=== PATIENT | female | born 1945 | race Caucasian/White ===

== ENCOUNTER 2018-03-29 11:50 | Emergency (ER) | payer OTHER ==
[2018-03-29 12:54] LABS: Absolute Monocytes 0.6 K/uL (0.1-1.3); Absolute Neutrophil 4.5 K/uL (1.8-8.0); Basophils % 0.4 % (0-1.3); Eosinophils % 0.7 % (0-4.4); Hematocrit 38.1 % (36.0-45.0); Lymphocytes % 15.7 % (15.3-44.8); MCH 30.5 pg (27.0-35.0); MCV 88.3 fL (80-100); MPV 10.5 fL (7.6-11.3); Monocytes % 9.7 % (3.3-12.3); RBC Red Blood Cell Count 4.32 M/uL (3.86-4.86)
[2018-03-29 12:55] LABS: Protime INR 0.97
[2018-03-29] MEDS ORDERED: ASPIRIN 81 MG CHEWABLE TABLET ONE (12:57)
--- NOTE | 2018-03-29 13:09 | RAD REPORT ---
EXAM DESCRIPTION: RAD - Chest Single View - 03/29/2018 1:03 pm CLINICAL HISTORY: CHEST PAIN Chest pain. COMPARISON: Chest Pa And Lat (2 Views) dated 03/17/2017; CHEST PA AND LAT 2 VIEW dated 06/28/2012 FINDINGS: Portable technique limits examination quality. The lungs are grossly clear. The heart is normal in size. No displaced fractures. IMPRESSION: No acute intrathoracic process suspected.
[2018-03-29 13:42] LABS: Urine Blood NEGATIVE (NEG); Urine Glucose NEGATIVE (NEG); Urine Protein NEGATIVE (NEG); Urine Specific Gravity 1.005 (1.005-1.030); Urine pH 5.5 (5.0-7.0)
[2018-03-29 13:57] LABS: ALT/SGPT 30 U/L (12-78); AST/SGOT 23 U/L (15-37); Albumin 3.6 g/dL (3.4-5.0); Alkaline Phosphatase 119 U/L (45-117); BUN Blood Urea Nitrogen 18 mg/dL (7-18); Bicarbonate 28 mmol/L (21-32); Bilirubin Direct 0.1 mg/dL (0-0.2); Bilirubin Total 0.5 mg/dL (0.2-1.0); CKMB Creatine Kinase MB < 1.0 ng/mL (0.3-3.6); Creatine Phosphokinase 56 U/L (26-192); Glucose Level 71 mg/dL (74-106); Magnesium 2.1 mg/dL (1.8-2.4); NT PRO-BNP 178 pg/mL (<125); Potassium 3.5 mmol/L (3.5-5.1); Protein, Total 7.2 g/dL (6.4-8.2); Sodium Level 143 mmol/L (136-145)
--- NOTE | 2018-03-29 15:30 | ER ---
Nurse's Notes [facility] Name: Dang Kemp Age: 72 yrs Sex: Female : 1945 Arrival Date: 03/29/2018 Time: 11:53 Bed 23 Private MD: Anuel Prasad Diagnosis: Unstable angina Presentation: 03/29 11:57 Presenting complaint: Patient states: midsternal and left sided chest pressure that sv started 3 days ago. c/o SOB and dizziness. Transition of care: patient was not received from another setting of care. Onset of symptoms was March 26, 2018. Care prior to arrival: None. 11:57 Method Of Arrival: Wheelchair sv 11:57 Acuity: CATARINO 3 sv 12:45 Risk Assessment: Do you want to hurt yourself or someone else? Patient reports no la1 desire to harm self or others. Initial Sepsis Screen: Does the patient meet any 2 criteria? No. Patient's initial sepsis screen is negative. Does the patient have a suspected source of infection? No. Patient's initial sepsis screen is negative. Historical: - Allergies: 12:02 No Known Allergies; sv - PMHx: 12:02 heart disease; Thyroid problem; sv - PSHx: 12:02 Hysterectomy; Cholecystectomy; colon; sinus; breast reduction; sv - Immunization history:: Adult Immunizations up to date. - Social history:: Smoking status: Patient/guardian denies using tobacco. - Ebola Screening: : No symptoms or risks identified at this time. Screenin:45 Abuse screen: Denies threats or abuse. Denies injuries from another. Nutritional la1 screening: No deficits noted. Tuberculosis screening: No symptoms or risk factors identified. Fall Risk None identified. Assessment: 12:44 General: Appears comfortable, Behavior is calm, cooperative. Pain: Complains of pain in la1 anterior aspect of left upper chest Pain radiates to chest Pain currently is 3 out of 10 on a pain scale. Quality of pain is described as shooting, Pain began 2-3 days ago. Neuro: Level of Consciousness is awake, alert, obeys commands, Oriented to person, place, time, situation. Cardiovascular: Capillary refill < 3 seconds Patient's skin is warm and dry. 13:12 Reassessment: Patient appears in no apparent distress at this time. No changes from la1 previously documented assessment. Patient and/or family updated on plan of care and expected duration. Pain level reassessed. 15:19 Reassessment: Patient appears in no apparent distress at this time. No changes from la1 previously documented assessment. Patient and/or family updated on plan of care and expected duration. Pain level reassessed. Patient states symptoms have improved. Vital Signs: 11:57 BP 142 / 121; Pulse 79; Resp 20; Pulse Ox 100% ; Weight 71.67 kg; Height 5 ft. 4 in. sv (162.56 cm); Pain 2/10; 12:22 BP 156 / 118; Pulse 73; Resp 19; Pulse Ox 100% on R/A; la1 12:44 BP 132 / 74; Pulse 76; Resp 19; Pulse Ox 100% on R/A; la1 15:20 BP 119 / 91; Pulse 74; Resp 19; Pulse Ox 100% on R/A; la1 11:57 Body Mass Index 27.12 (71.67 kg, 162.56 cm) ED Course: 11:53 Patient arrived in ED. mr 11:53 Anuel Prasad MD is Private Physician. mr 11:57 Arm band placed on right wrist. Patient placed in an exam room, on a stretcher, on pulse oximetry. 12:00 Warm blanket given. Pillow given. jp3 12:02 Triage completed. sv 12:03 Eduardo Lentz NP is PHCP. pm1 12:03 Silvano Villar MD is Attending Physician. pm1 12:04 Dvaid Marques RN is Primary Nurse. la1 12:09 EKG done, by roving technician. reviewed by Eduardo Lentz NP. at1 12:20 Inserted saline lock: 22 gauge in right antecubital area, using aseptic technique. jp3 Blood collected. 12:25 Initial lab(s) drawn, by id, sent to lab. Urine collected: clean catch specimen, clear, jp3 major colored. 12:45 Call light in reach. teletypesetter monitor on. Pulse ox on. NIBP on. la1 12:45 Patient maintains SpO2 saturation greater than 95% on room air. la1 12:59 X-ray completed. Portable x-ray completed in exam room. Patient tolerated procedure jb2 well. 13:03 XRAY Chest (1 view) In Process Unspecified. EDMS 15:33 No provider procedures requiring assistance completed. IV discontinued, intact, la1 bleeding controlled, No redness/swelling at site. Pressure dressing applied. Administered Medications: 12:56 Drug: Aspirin Chewable Tablet 324 mg Route: PO; la1 13:38 Follow up: Response: No adverse reaction la1 Outcome: 15:33 AMA AMA form signed la1 15:33 Condition: unchanged 15:33 Instructed on risks associated with leaving AMA 15:41 Patient left the ED. ss Signatures: Dispatcher [employer] EDHanna Chavira RN RN sv Rivera, Maria mr DrewfantadoniLauri jb2 Marva Fisher RN RN ss Lelia castaneda, line repairer tower EKG Tat1 David Marques RN RN la1 Eduardo Lentz, DINESH WORK AND FAMILY LIFE CONSULTANT pm1 Xavier Goldberg jp3
--- NOTE | 2018-03-29 15:31 | EDPHYS ---
Physician Documentation [facility] Name: Dang Kemp Age: 72 yrs Sex: Female : 1945 Arrival Date: 03/29/2018 Time: 11:53 Bed 23 Private MD: Anuel Prasad ED Physician Silvano Villar HPI: 03/29 12:47 This 72 yrs old Female presents to ER via Wheelchair with complaints of Chest pm1 Pain. 12:47 The patient or guardian reports chest pain that is located primarily in the substernal pm1 area. Onset: angina for the past 4-5 years, became worse for the past 3 days. Character of the pain is different. Pain is typically in the xiphoid, epigastric area but now it is radiating to her left chest and shoulder. She experiences chest and shortness of breath with exertion. The pain radiates to the left shoulder. Associated signs and symptoms: Pertinent positives: shortness of breath, Pertinent negatives: abdominal pain, cough, nausea, vomiting. The chest pain is described as a pressure. Duration: The patient or guardian reports multiple episodes. Modifying factors: The symptoms are alleviated by NTG, nitro patch and rest the symptoms are aggravated by exertion. Severity of pain: in the emergency department the pain has improved is a 2 / 10. The patient has experienced similar episodes in the past, multiple times. The patient has not recently seen a physician, Last seen by computer game designer in July 2017. Historical: - Allergies: 12:02 No Known Allergies; sv - PMHx: 12:02 heart disease; Thyroid problem; sv - PSHx: 12:02 Hysterectomy; Cholecystectomy; colon; sinus; breast reduction; sv - Immunization history:: Adult Immunizations up to date. - Social history:: Smoking status: Patient/guardian denies using tobacco. - Ebola Screening: : No symptoms or risks identified at this time. ROS: 13:00 Constitutional: Negative for fever, chills, and weight loss, Eyes: Negative for injury, pm1 pain, redness, and discharge, ENT: Negative for injury, pain, and discharge, Neck: Negative for injury, pain, and swelling, Abdomen/GI: Negative for abdominal pain, nausea, vomiting, diarrhea, and constipation, Back: Negative for injury and pain, : Negative for injury, bleeding, discharge, and swelling, MS/Extremity: Negative for injury and deformity, Skin: Negative for injury, rash, and discoloration, Neuro: Negative for headache, weakness, numbness, tingling, and seizure. 13:00 Cardiovascular: Positive for chest pain, Negative for edema, palpitations. 13:00 Respiratory: Positive for shortness of breath, on exertion. Negative for cough. Exam: 13:00 Constitutional: This is a well developed, well nourished patient who is awake, alert, pm1 and in no acute distress. Head/Face: Normocephalic, atraumatic. Eyes: Pupils equal round and reactive to light, extra-ocular motions intact. Lids and lashes normal. Conjunctiva and sclera are non-icteric and not injected. Cornea within normal limits. Periorbital areas with no swelling, redness, or edema. ENT: Nares patent. No nasal discharge, no septal abnormalities noted. Tympanic membranes are normal and external auditory canals are clear. Oropharynx with no redness, swelling, or masses, exudates, or evidence of obstruction, uvula midline. Mucous membranes moist. Neck: Trachea midline, no thyromegaly or masses palpated, and no cervical lymphadenopathy. Supple, full range of motion without nuchal rigidity, or vertebral point tenderness. No Meningismus. 13:00 Cardiovascular: Regular rate and rhythm with a normal S1 and S2. No gallops, murmurs, or rubs. Normal PMI, no JVD. No pulse deficits. Respiratory: Lungs have equal breath sounds bilaterally, clear to auscultation and percussion. No rales, rhonchi or wheezes noted. No increased work of breathing, no retractions or nasal flaring. 13:00 Abdomen/GI: Soft, non-tender, with normal bowel sounds. No distension or tympany. No guarding or rebound. No evidence of tenderness throughout. Back: No spinal tenderness. No costovertebral tenderness. Full range of motion. Skin: Warm, dry with normal turgor. Normal color with no rashes, no lesions, and no evidence of cellulitis. MS/ Extremity: Pulses equal, no cyanosis. Neurovascular intact. Full, normal range of motion. 13:00 Chest/axilla: Inspection: normal, Palpation: tenderness, that is mild, of the anterior aspect of left upper chest, that does not reproduce the patient's complaints. 13:00 NSR 13:00 Neuro: Orientation: is normal, Motor: is normal, moves all fours. Vital Signs: 11:57 BP 142 / 121; Pulse 79; Resp 20; Pulse Ox 100% ; Weight 71.67 kg; Height 5 ft. 4 in. sv (162.56 cm); Pain 2/10; 12:22 BP 156 / 118; Pulse 73; Resp 19; Pulse Ox 100% on R/A; la1 12:44 BP 132 / 74; Pulse 76; Resp 19; Pulse Ox 100% on R/A; la1 15:20 BP 119 / 91; Pulse 74; Resp 19; Pulse Ox 100% on R/A; la1 11:57 Body Mass Index 27.12 (71.67 kg, 162.56 cm) sv MDM: 12:04 Patient medically screened. pm1 13:00 Data reviewed: vital signs. pm1 14:10 Counseling: I had a detailed discussion with the patient and/or guardian regarding: the pm1 historical points, exam findings, and any diagnostic results supporting the discharge/admit diagnosis, lab results, radiology results, the need for further work-up and treatment in the hospital. 14:10 Refusal of service: The patient/guardian displays adequate decision making capability pm1 and despite a detailed discussion of alternatives, benefits, risks, and consequences refuses: Admission to the hospital for further work-up and treatment, Patient does not want to go to [facility] for transfer due to ambulance ride comfort. Patient does not want to be admitted here due to desire to be seen by her computer game designer Dr. Márquez. Discussed with patient at length over 15 minutes the need for admission and the risks of going AMA. Patient [facility] to [facility] in her own personal vehicle to be admitted. 14:43 Physician consultation: Hawa Márquez was called at 14:44, message left with office pm1 executive secretary who is contacting the MD. 15:16 Physician consultation: Hawa Márquez was contacted at 15:16, regarding patient's pm1 condition, Patient's unwillingness to transfer by ambulance and wants to go to the hospital by personal vehicle. Discussed at length with patient the risks of going by personal vehicle. Patient and family still want to go by personal vehicle. Dr. Márquez made aware of patient's decision that I will have to AMA the patient and they are to report to ER to get admitted. 03/29 12:05 Order name: Basic Metabolic Panel; Complete Time: 14:06 pm1 03/29 12:05 Order name: CBC with Diff; Complete Time: 13:25 pm1 03/29 12:05 Order name: Ckmb; Complete Time: 14:06 pm1 03/29 12:05 Order name: CPK; Complete Time: 14:06 pm1 03/29 12:05 Order name: LFT's; Complete Time: 14:06 pm1 03/29 12:05 Order name: Magnesium; Complete Time: 14:06 pm1 03/29 12:03 Order name: EKG; Complete Time: 12:04 sv 03/29 12:05 Order name: NT PRO-BNP; Complete Time: 14:06 pm1 03/29 12:05 Order name: PT-INR; Complete Time: 13:25 pm1 03/29 12:05 Order name: Ptt, Activated; Complete Time: 13:25 pm1 03/29 12:05 Order name: Troponin (emerg Dept Use Only); Complete Time: 13:25 pm1 03/29 12:05 Order name: XRAY Chest (1 view); Complete Time: 13:25 pm1 03/29 13:38 Order name: Urine Dipstick--Ancillary (enter results); Complete Time: 14:06 eb 03/29 12:03 Order name: EKG - Nurse/Tech; Complete Time: 12:04 sv 03/29 12:05 Order name: Cardiac monitoring; Complete Time: 12:46 pm1 03/29 12:05 Order name: IV Saline Lock; Complete Time: 12:46 pm1 03/29 12:05 Order name: Labs collected and sent; Complete Time: 12:46 pm1 03/29 12:05 Order name: O2 Per Protocol; Complete Time: 12:46 pm1 03/29 12:05 Order name: O2 Sat Monitoring; Complete Time: 12:46 pm1 03/29 12:05 Order name: Urine Dipstick-Ancillary (obtain specimen); Complete Time: 13:41 pm1 Administered Medications: 12:56 Drug: Aspirin Chewable Tablet 324 mg Route: PO; la1 13:38 Follow up: Response: No adverse reaction la1 Disposition: 18:29 Co-signature as Attending Physician, Silvano Villar MD I agree with the assessment and kdr plan of care. Disposition: 03/29/18 15:30 Patient has left against medical advice. Impression: Unstable angina. - Patients states they are going to Home. - Condition is Undetermined. - Discharge Instructions: Acute Coronary Syndrome. Follow up: Emergency Department; When: Upon discharge from the Emergency Department; Reason: Worsening of condition. Follow up: Private Physician; When: Upon discharge from the Emergency Department; Reason: Recheck today's complaints, Continuance of care, Re-evaluation by your physician. - Problem is new. - Symptoms have improved. Signatures: Dispatcher [employer] Hanna Dubon, RN RN Silvano Hathaway MD MD [facility] Marva Fisher RN RN ss Attema, Lee, RN RN la1 Eduardo Lentz, DINESH CAR TRACER pm1 Corrections: (The following items were deleted from the chart) 15:41 15:30 03/29/2018 15:30 Patients has left against medical advice. Impression: Unstable ss angina. Patient states they are going to Home. Condition is Undetermined. Follow up: Emergency Department; When: Upon discharge from the Emergency Department; Reason: Worsening of condition. Follow up: Private Physician; When: Upon discharge from the Emergency Department; Reason: Recheck today's complaints, Continuance of care, Re-evaluation by your physician. Problem is new. Symptoms have improved. pm1
--- NOTE | 2018-03-30 06:50 | EKG ---
Test Date: 2018-03-29 Test Time: 12:05:12 Desk Monitor: SEBASTIAN MEASUREMENT RESULTS: Intervals: Rate: 74 MS: 158 QRSD: 98 QT: 400 QTc: 444 [place]: P: 58 MS: 158 QRS: 3 T: 47 INTERPRETIVE STATEMENTS: Normal sinus rhythm Normal ECG Compared to ECG 09/10/2004 11:44:00 No significant changes Electronically Signed On 03-30-18 06:49:22 CDT by Geovani Pruett
== END 2018-03-29 15:41 | disposition left against medical advice (07) ==
LOC: ER 11:50
DX: I20.0 Unstable angina (principal); I51.9 Heart disease, unspecified
CPT/HCPCS: 36415; 71045; 80048; 80076; 81003; 82550; 82553; 83735; 83880; 84484; 85025; 85610; 85730; 93005; 99285

== ENCOUNTER 2018-07-14 12:05 | Observation (INO) | payer OTHER ==
--- OUTSIDE RECORDS SUMMARY | 2018-07-14 12:07 | XMS REPORT | Clinical Summary ---
:1945 Author Organization [facility] Address [address] [place] [address] Care Team Providers Name Role Phone System, Provider Not In Primary Care Provider Unavailable Allergies No Known Allergies Medications Medication Sig Dispensed Refills Start Date End Date Status esomeprazole Take 20 mg by 0 Active (NEXIUM) 20 MG mouth daily. capsule amLODIPine Take 10 mg by 0 Active (NORVASC) 10 MG mouth daily. tablet estradiol (ESTRACE) Take 0.5 mg by 0 Active 0.5 MG tablet mouth daily. zolpidem (AMBIEN) Take 10 mg by 0 Active 10 mg tablet mouth every night as needed for Insomnia. atorvastatin Take 40 mg by 0 Active (LIPITOR) 20 MG mouth daily . tablet ranolazine (RANEXA) Take 500 mg by 0 Active 500 MG 12 hr tablet mouth 2 (two) times daily. cetirizine (ZYRTEC) Take 10 mg by 0 Active 10 MG chewable mouth daily. tablet estradiol (ESTRING) Place 2 mg 0 Active 2 mg (7.5 mcg /24 vaginally every hour) vaginal ring 3 (three) months follow package directions . aspirin 81 MG Take 81 mg by 0 Active chewable tablet mouth daily. citalopram (CELEXA) Take 60 mg by 0 Active 40 MG tablet mouth daily. levothyroxine Take 100 mcg by 0 Active (SYNTHROID, mouth Every LEVOTHROID) 100 MCG morning on an tablet empty stomach. liothyronine Take 5 mcg by 0 Active (CYTOMEL) 5 MCG mouth daily. tablet carvedilol (COREG) Take 1 tablet 60 tablet 11 03/31/2018 Active 6.25 MG tablet (6.25 mg total) 9 by mouth 2 (two) times daily with breakfast and dinner. levothyroxine Take 150 mcg by 0 Discontinued (SYNTHROID, mouth daily. 8 LEVOTHROID) 150 MCG tablet citalopram (CELEXA) Take 10 mg by 0 Discontinued 10 MG tablet mouth daily. 8 amLODIPine Take 5 mg by 0 Discontinued (NORVASC) 5 MG mouth daily. 8 tablet ranitidine (ZANTAC) Take 150 mg by 0 Discontinued 150 MG capsule mouth 2 (two) 8 times daily. carvedilol (COREG) Take 1 tablet 60 tablet 11 03/31/2018 Discontinued 6.25 MG tablet (6.25 mg total) 8 by mouth 2 (two) times daily with breakfast and dinner. Active Problems Problem Noted Date CAD (coronary artery disease) 03/31/2018 Chest pain 03/20/2015 Abnormal cardiovascular function study 03/20/2015 Encounters Date Type Specialty Care Team Description 03/31/2018 Surgery Geovani Agrawal CATH & PCI MD Dinoicio 03/29/2018 - Emergency Cardiology Jose Miramontes Chest pain, unspecified type (Primary Dx); 03/31/2018 MD Beni Abnormal cardiovascular function study; Phoenix Guy Essential hypertension; MD Chanell Elevated blood pressure reading; Aamir Terry Coronary artery disease involving [place] heart with angina pectoris, unspecified vessel or lesion type (HCC) (Tao) MD Gideon 03/29/2018 Orders Only General Internal Medicine after 07/13/2017 Social History Tobacco Use Types Packs/Day Years Used Date Never Smoker Smokeless Tobacco: Never Used Alcohol Use Drinks/Week oz/Week Comments Yes "not much" Sex Assigned at Date Recorded Not on file Job Start Date Occupation Industry Not on file Not on file Not on file Travel History Travel Start Travel End No recent travel history available. Last Filed Vital Signs Vital Sign Reading Time Taken Blood Pressure 134/63 03/31/2018 5:00 PM CDT Pulse 77 03/31/2018 5:00 PM CDT Temperature 37.1 C (98.7 F) 03/31/2018 4:30 PM CDT Respiratory Rate 18 03/31/2018 5:00 PM CDT Oxygen Saturation 99% 03/31/2018 5:00 PM CDT Inhaled Oxygen Concentration - - Weight 70 kg (154 lb 6.4 oz) 03/31/2018 7:39 AM CDT Height 162.6 cm (5' 4") 03/29/2018 10:43 PM CDT Body Mass Index 26.5 03/31/2018 7:39 AM CDT Plan of Treatment Not on file Procedures Procedure Name Priority Date/Time Associated Diagnosis Comments VASCULAR DIAGRAM -SCAN 06/22/2018 6:20 AM CDT RHYTHM STRIP - SCAN 04/01/2018 10:10 AM CDT VASCULAR DIAGRAM -SCAN 04/01/2018 10:10 AM CDT CARDIAC CATH REPORT - 04/01/2018 10:10 AM SCAN CDT L CATH & PCI 03/31/2018 3:27 PM Chest pain, unspecified CDT type Case Notes 1418 TSH/FREE T4 IF INDICATED Routine 03/31/2018 3:01 PM CDT PROTHROMBIN TIME/INR Routine 03/31/2018 4:47 AM CDT BASIC METABOLIC PANEL (7) Routine 03/31/2018 4:47 AM CDT CBC (HEMOGRAM ONLY) Routine 03/31/2018 4:47 AM CDT LIPID PANEL Routine 03/31/2018 4:47 AM CDT APTT Routine 03/30/2018 9:45 AM CDT TROPONIN I Routine 03/30/2018 9:45 AM CDT BASIC METABOLIC PANEL (7) Routine 03/30/2018 3:55 AM CDT TROPONIN I Routine 03/30/2018 3:55 AM CDT APTT Routine 03/30/2018 3:17 AM CDT CBC (HEMOGRAM ONLY) Routine 03/30/2018 3:17 AM CDT ED ECG INTERPRETATION Routine 03/30/2018 12:57 AM CDT B-TYPE NATRIURETIC FACTOR Routine 03/29/2018 9:52 PM CDT Results for this (BNP) procedure are in the results section. URINALYSIS W/ MICROSCOPIC STAT 03/29/2018 7:26 PM CDT XR CHEST PA OR AP 1 VIEW IN STAT 03/29/2018 7:20 PM CDT Results for this DEPT. procedure are in the results section. CBC W/PLT COUNT & AUTO STAT 03/29/2018 7:06 PM CDT Results for this DIFFERENTIAL procedure are in the results section. MAGNESIUM STAT 03/29/2018 7:06 PM CDT CREATINE KINASE (CK), TOTAL STAT 03/29/2018 7:06 PM CDT Results for this AND MB procedure are in the results section. TROPONIN I STAT 03/29/2018 7:06 PM CDT HEPATIC FUNCTION PANEL STAT 03/29/2018 7:06 PM CDT LIPASE STAT 03/29/2018 7:06 PM CDT CBC W/PLT COUNT & AUTO STAT 03/29/2018 7:06 PM CDT Results for this DIFFERENTIAL procedure are in the results section. BASIC METABOLIC PANEL (7) STAT 03/29/2018 7:06 PM CDT ECG 12-LEAD Routine 03/29/2018 5:53 PM CDT ECG 12-LEAD Routine 03/29/2018 5:53 PM CDT Procedure Note - Interface, External Ris In - 03/29/2018 6:21 PM CDT Ventricular Rate 76 BPM Atrial Rate 76 BPM P-R Interval 162 ms QRS Duration 92 ms Q-T Interval 394 ms QTC Calculation(Bazett) 443 ms P Regina 49 degrees R Regina 2 degrees T Regina 62 degrees Normal sinus rhythm Normal ECG No previous ECGs available after 07/13/2017 Results VASCULAR DIAGRAM -SCAN (06/22/2018 6:20 AM CDT)Only the most recent of2 resultswithin the time period is included. Narrative Performed At RHYTHM STRIP - SCAN (04/01/2018 10:10 AM CDT) Narrative Performed At CARDIAC CATH REPORT - SCAN (04/01/2018 10:10 AM CDT) Narrative Performed At TSH/Free T4 If Indicated (03/31/2018 3:01 PM CDT) TSH 0.41 0.35 - 4.94 uIU/mL [facility] Specimen Blood - Line, Venous Performing Organization Address City/State/Zipcode Phone Number [address] [address] CENTER Prothrombin time/INR (03/31/2018 4:47 AM CDT) Protime 13.4 11.7 - 14.7 seconds [facility] INR 1.0 <=5.9 [facility] Specimen Blood - Arm, Right Narrative Performed At [facility] RECOMMENDED COUMADIN/WARFARIN INR THERAPY RANGES STANDARD DOSE: 2.0 - 3.0 Includes: PROPHYLAXIS for venous thrombosis, systemic embolization; TREATMENT for venous thrombosis and/or pulmonary embolus. HIGH RISK: Target INR is 2.5-3.5 for patients with mechanical heart valves. Performing Organization Address City/State/[facility] Phone Number [address] [address] [place] CBC (hemogram only) (03/31/2018 4:47 AM CDT)Only the most recent of2 resultswithin the time period is included. WBC 6.2 3.5 - 10.5 K/L [facility] RBC 4.16 3.93 - 5.22 M/L [facility] Hemoglobin 12.1 11.2 - 15.7 GM/DL [facility] Hematocrit 38.3 34.1 - 44.9 % [facility] MCV 92.1 79.4 - 94.8 fL [facility] MCH 29.1 25.6 - 32.2 pg [facility] MCHC 31.6 (L) 32.2 - 35.5 GM/DL [facility] RDW 12.2 11.7 - 14.4 % [facility] Platelets 188 150 - 450 K/CU MM [facility] MPV 11.8 9.4 - 12.3 fL [facility] nRBC 0 0 - 0 /100 WBC [facility] Specimen Blood - Arm, Right Performing Organization Address City/[facility] Phone Number [address] [address] [place] Lipid panel (03/31/2018 4:47 AM CDT) Triglycerides 91 mg/dL [facility] Cholesterol 159 mg/dL [facility] HDL 46 mg/dL [facility] LDL Calculated 95 mg/dL [facility] Specimen Blood - Arm, Right Narrative Performed At [facility] Triglyceride Reference Range: Low Risk <150 [id number] High Risk 200-499 Very High Risk>=500 Cholesterol Reference Range: Low Risk <200 [id number] High Risk>240 HDL Cholesterol Reference Range: Low Risk >=60 High Risk <40 LDL Cholesterol Reference Range: Optimal<100 Near [id number] Very High >=190 Performing Organization Address City/[facility]/Zipcode Phone Number [address] [address] [phone] [place] Basic Metabolic Panel (03/31/2018 4:47 AM CDT)Only the most recent of3 resultswithin the time period is included. Sodium 138 136 - 145 meq/L [facility] Potassium 3.8 3.5 - 5.1 meq/L [facility] Chloride 108 (H) 98 - 107 meq/L [facility] CO2 21 (L) 22 - 29 meq/L [facility] BUN 15 7 - 21 mg/dL [facility] Creatinine 0.78 0.57 - 1.25 mg/dL [facility] Glucose 90 70 - 105 mg/dL [facility] Calcium 9.5 8.4 - 10.2 mg/dL [facility] EGFR 72Comment: ESTIMATED GFR IS mL/min/1.73 sq m [facility] NOT ACCURATE [facility] CLEARANCE IN PREDICTING GLOMERULAR FILTRATION RATE. ESTIMATED GFR IS NOT APPLICABLE FOR DIALYSIS PATIENTS. Specimen Blood - Arm, Right Performing Organization Address [facility] Phone Number [address] [address] [place] Troponin I (03/30/2018 9:45 AM CDT)Only the most recent of3 resultswithin the time period is included. Troponin I <0.01 0.00 - 0.03 ng/mL [facility] Specimen Blood - Arm, Left Narrative Performed At [facility] Troponin I (TnI) levels must be interpreted in the context of the presenting symptoms and the clinical findings. Elevated TnI levels indicate myocardial damage, but are not specific for ischemic heart disease. Elevated TnI levels are seen in patients with other cardiac conditions (including myocarditis and congestive heart failure), and slight TnI elevations occur in patients with other conditions, including sepsis, renal failure, acidosis, acute neurological disease, and persistent tachyarrhythmia. Performing Organization Address [facility] Phone Number [address] [address] [place] aPTT (03/30/2018 9:45 AM CDT)Only the most recent of2 resultswithin the time period is included. PTT 95.5 (H) 22.5 - 36.0 seconds [facility] Specimen Blood - Arm, Left Performing Organization Address [facility] Phone Number [address] [phone] CENTER ED ECG Interpretation (03/30/2018 12:57 AM CDT) Narrative Performed At Jose Miramontes MD 03/30/2018 12:57 AM ECG/EKG Interpretation Date/Time: 03/29/2018 9:25 PM Performed by: JOSE MIRAMONTES Authorized by: JOSE MIRAMONTES The ECG was interpreted by ED physician. The ECG is interpreted as sinus rhythm. Rate is normal rate. Heart rate is 76 BPM. Conduction: conduction normal. ST segments normal. ECG reviewed and does not meet STEMI criteria. Patient tolerance: Patient tolerated the procedure well with no immediate complications B-type Natriuretic Factor (BNP) (03/29/2018 9:52 PM CDT) BNP 62 0 - 100 pg/mL [facility] Specimen Blood Performing Organization Address City/State/Zipcode Phone Number [facility] [address] [place] [address] [phone] CENTER Urinalysis w/Microscopic (03/29/2018 7:26 PM CDT) Color, UA Light Yellow [facility] Clarity, UA Clear [facility] Specific [place], UA 1.004 1.001 - 1.035 [facility] pH, UA 6.0 5.0 - 8.0 [facility] Protein, UA Negative Negative [facility] Glucose, UA Negative Negative [facility] Ketones, UA Negative Negative [facility] Bilirubin, UA Negative Negative [facility] Blood, UA Negative Negative [facility] Nitrite, UA Negative Negative [facility] Leukocytes, UA Negative Negative [facility] Urobilinogen, UA 0.2 0.2 - 1.0 mg/dL [facility] RBC, UA <1 /HPF [facility] WBC, UA <1 /HPF [facility] Squam Epithel, UA <1 /HPF [facility] Specimen Source Urine, Clean Catch [facility] Specimen Urine - Urine, Clean Catch Performing Organization Address City/State/Zipcode Phone Number [facility] [address] [place] [address] CENTER XR chest PA or AP 1 view in dept (03/29/2018 7:20 PM CDT) Narrative Performed At FINAL REPORT [facility] HISTORY : CHEST PAIN. Comparison: None Comment: Single portable view of the chest was obtained. The cardiac silhouette size is within normal limits. No pneumothorax or pleural effusion is seen. There is some left basilar airspace disease/consolidation that may represent atelectasis. Pneumonitis or aspiration cannot be excluded. Signed: Tremayne Armenta MD Report Verified Date/Time:03/29/2018 19:39:19 Reading Location: [address] Consult Reading Room Procedure Note Interface, External Ris In - 03/29/2018 7:41 PM CDT FINAL REPORT HISTORY : CHEST PAIN. Comparison: None Comment: Single portable view of the chest was obtained. The cardiac silhouette size is within normal limits. No pneumothorax or pleural effusion is seen. There is some left basilar airspace disease/consolidation that may represent atelectasis. Pneumonitis or aspiration cannot be excluded. Signed: Tremayne Armenta MD Report Verified Date/Time: 03/29/2018 19:39:19 Reading Location: [address] Consult Reading Room Performing Organization Address City/State/Zipcode Phone Number [facility] CBC with platelet count + automated diff (03/29/2018 7:06 PM CDT) WBC 6.4 3.5 - 10.5 K/L [facility] RBC 3.87 (L) 3.93 - 5.22 M/L [facility] Hemoglobin 11.6 11.2 - 15.7 GM/DL [facility] Hematocrit 36.5 34.1 - 44.9 % [facility] MCV 94.3 79.4 - 94.8 fL [facility] MCH 30.0 25.6 - 32.2 pg [facility] MCHC 31.8 (L) 32.2 - 35.5 GM/DL [facility] RDW 12.1 11.7 - 14.4 % [facility] Platelets 175 150 - 450 K/CU MM [facility] MPV 11.9 9.4 - 12.3 fL [facility] nRBC 0 0 - 0 /100 WBC [facility] % Neutros 70 % [facility] % Lymphs 17 % [facility] % Monos 12 % [facility] % Eos 1 % [facility] % Baso 0 % [facility] # Neutros 4.51 1.56 - 6.13 K/L [facility] # Lymphs 1.09 (L) 1.18 - 3.74 K/L [facility] # Monos 0.74 (H) 0.24 - 0.36 K/L [facility] # Eos 0.04 0.04 - 0.36 K/L [facility] # Baso 0.02 0.01 - 0.08 K/L [facility] Immature Granulocytes-Relative 0 0 - 1 % [facility] Specimen Blood - Arm, Right Performing Organization Address City/State/Zipcode Phone Number [facility] [address] [place] [address] CENTER Magnesium (03/29/2018 7:06 PM CDT) Magnesium 2.2 1.6 - 2.6 mg/dL [facility] Specimen Blood - Arm, Right Performing Organization Address [facility]/Zipcode Phone Number [address] [address] [phone] [place] Lipase (03/29/2018 7:06 PM CDT) Lipase 24 8 - 78 U/L [facility] Specimen Blood - Arm, Right Performing Organization Address [facility] Phone Number [address] [address] [place] Creatine Kinase (CK), Total and MB (03/29/2018 7:06 PM CDT) Total CK 55 29 - 200 U/L [facility] CK-MB 1.1 0.0 - 6.6 ng/mL [facility] MB Relative Index 2.0 % [facility] Specimen Blood - Arm, Right Narrative Performed At CK-MB Reference Range: [facility] <6.7Normal 6.7-10.0Borderline >10.0 Abnormal Performing Organization Address [facility] Phone Number [address] [address] [place] Hepatic function panel (03/29/2018 7:06 PM CDT) Protein, Total 6.3 6.0 - 8.3 gm/dL [facility] Albumin 3.8 3.5 - 5.0 g/dL [facility] Total Bilirubin 0.3 0.2 - 1.2 mg/dL [facility] Bilirubin, Direct 0.1 0.1 - 0.5 mg/dL [facility] Alkaline Phosphatase 101 40 - 150 U/L [facility] AST 20 5 - 34 U/L [facility] ALT 23 6 - 55 U/L [facility] Specimen Blood - Arm, Right Performing Organization Address City/State/Zipcode Phone Number [facility] [address] [place] [address] CENTER ECG 12 lead (03/29/2018 5:53 PM CDT) Narrative Performed At Ventricular Rate 76 BPM GE MUSE Atrial Rate 76 BPM P-R Interval 162 ms QRS Duration 92 ms Q-T Interval 394 ms QTC Calculation(Bazett) 443 ms P Regina 49 degrees R Regina 2 degrees T Regina 62 degrees Normal sinus rhythm Normal ECG No previous ECGs available Confirmed by Mouna CAO MICHAEL ([id number]) on 03/30/2018 7:12:03 AM Procedure Note Interface, External Ris In - 03/30/2018 7:12 AM CDT Ventricular Rate 76 BPM Atrial Rate 76 BPM P-R Interval 162 ms QRS Duration 92 ms Q-T Interval 394 ms QTC Calculation(Bazett) 443 ms P Regina 49 degrees R Regina 2 degrees T Regina 62 degrees Normal sinus rhythm Normal ECG No previous ECGs available Confirmed by Mouna CAO MICHAEL ([id number]) on 03/30/2018 7:12:03 AM Performing Organization Address City/State/[facility] Phone Number ALOK HILLMAN after 07/13/2017 Insurance Payer Benefit Plan / Subscriber ID Type Phone Address Group [employer] - MEDICARE [employer] MEDICARE HMO xxxxxxxx [phone] [address] [place] [address] Advance Directives For more information, please contact:[facility] [place], [place] [phone] Code Status Date Activated Date Inactivated Comments Full Code 03/30/2018 10:13 AM 03/31/2018 8:31 PM This code status was determined by: Patient Full Code 03/20/2015 7:59 AM 03/20/2015 3:33 PM This code status was determined by: Patient
--- OUTSIDE RECORDS SUMMARY | 2018-07-14 12:08 | XMS REPORT ---
:1945 [facility] Su[place]o [address] [place] [id number] Care Team Providers Name Role Phone JOSE MIRAMONTES Unavailable Unavailable Problems This patient has no known problems. Allergies, Adverse Reactions, Alerts This patient has no known allergies or adverse reactions. Medications This patient has no known medications. Results Test Description Test Time Test Comments Text Results Atomic Results Result Comments TSH/FREE T4 IF INDICATED 2018-03-31 16:23:00 Test Item Value Reference Range Comments THYROID STIMULATING HORMONE (BEAKER) (test dnie=688) 0.41 uIU/mL 0.35-4.94 LIPID [id number] 05:32:00 Test Item Value Reference Range Comments TRIGLYCERIDES (BEAKER) (test grhh=436) 91 mg/dL CHOLESTEROL (BEAKER) (test yfye=459) 159 mg/dL HDL CHOLESTEROL (BEAKER) (test ugmu=340) 46 mg/dL LDL CHOLESTEROL CALCULATED (BEAKER) (test 95 mg/dL jviz=117) Triglyceride Reference Range: Low Risk <150 Borderline 150- 199 High Risk 200-499 Very High Risk >=500Cholesterol Reference Range: Low Risk <200 Borderline 200-239 High Risk > 240HDL Cholesterol Reference Range: Low Risk >=60 High Risk <40LDL Cholesterol Reference Range: Optimal <100 Near Optimal 100-129 Borderline 130-159 High 160-189 Very High >=190BASIC METABOLIC [id number] 05:32:00 Test Item Value Reference Range Comments SODIUM (BEAKER) (test 138 meq/L 136-145 rplo=906) POTASSIUM (BEAKER) (test 3.8 meq/L 3.5-5.1 cebh=208) CHLORIDE (BEAKER) (test 108 meq/L 98-107 vxet=666) CO2 (BEAKER) (test 21 meq/L 22-29 xcwy=975) BLOOD UREA NITROGEN 15 mg/dL 7-21 (BEAKER) (test dowm=816) CREATININE (BEAKER) (test 0.78 mg/dL 0.57-1.25 zmnd=436) GLUCOSE RANDOM (BEAKER) 90 mg/dL 70-105 (test trms=127) CALCIUM (BEAKER) (test 9.5 mg/dL 8.4-10.2 vaps=949) EGFR (BEAKER) (test 72 mL/min/1.73 sq m ESTIMATED GFR IS NOT cuul=9680) ACCURATE CREATININE CLEARANCE IN PREDICTING GLOMERULAR FILTRATION RATE. ESTIMATED GFR IS NOT APPLICABLE FOR DIALYSIS PATIENTS. PROTHROMBIN TIME/[id number] 05:17:00 Test Item Value Reference Range Comments PROTIME (BEAKER) (test ldzt=395) 13.4 seconds 11.7-14.7 INR (BEAKER) (test sdhy=514) 1.0 <=5.9 RECOMMENDED COUMADIN/WARFARIN INR THERAPY RANGESSTANDARD DOSE: 2.0 - 3.0 Includes: PROPHYLAXIS forvenous thrombosis, systemic embolization; TREATMENT for venous thrombosis and/or pulmonary embolus.HIGH RISK: Target INR is 2.5-3.5 for patients with mechanical heart valves.CBC (HEMOGRAM ONLY)2018-03-31 05:06:00 Test Item Value Reference Range Comments WHITE BLOOD CELL COUNT (BEAKER) (test qepf=001) 6.2 K/ L 3.5-10.5 RED BLOOD CELL COUNT (BEAKER) (test hzrv=839) 4.16 M/ L 3.93-5.22 HEMOGLOBIN (BEAKER) (test fadj=788) 12.1 GM/DL 11.2-15.7 HEMATOCRIT (BEAKER) (test smyq=088) 38.3 % 34.1-44.9 MEAN CORPUSCULAR VOLUME (BEAKER) (test lbwe=861) 92.1 fL 79.4-94.8 MEAN CORPUSCULAR HEMOGLOBIN (BEAKER) (test 29.1 pg 25.6-32.2 uuaz=529) MEAN CORPUSCULAR HEMOGLOBIN CONC (BEAKER) (test 31.6 GM/DL 32.2-35.5 zgps=214) RED CELL DISTRIBUTION WIDTH (BEAKER) (test 12.2 % 11.7-14.4 keyd=106) PLATELET COUNT (BEAKER) (test typg=624) 188 K/CU MM 150-450 MEAN PLATELET VOLUME (BEAKER) (test xejd=485) 11.8 fL 9.4-12.3 NUCLEATED RED BLOOD CELLS (BEAKER) (test 0 /100 WBC 0-0 cghb=891) TROPONIN [id number] 10:28:00 Test Item Value Reference Range Comments TROPONIN I (BEAKER) (test olav=271) < ng/mL 0.00-0.03 Troponin I (TnI) levels must be interpreted [...] failure, acidosis, acute neurological disease, and persistent tachyarrhythmia.[id number] 10:12:00 Test Item Value Reference Range Comments PARTIAL THROMBOPLASTIN TIME (BEAKER) (test 95.5 seconds 22.5-36.0 jmpv=213) TROPONIN [id number] 04:28:00 Test Item Value Reference Range Comments TROPONIN I (BEAKER) (test jvrb=631) < ng/mL 0.00-0.03 Troponin I (TnI) levels must be interpreted [...] failure, acidosis, acute neurological disease, and persistent tachyarrhythmia.BASIC METABOLIC [id number] 04:21:00 Test Item Value Reference Range Comments SODIUM (BEAKER) (test 141 meq/L 136-145 asah=099) POTASSIUM (BEAKER) (test 4.3 meq/L 3.5-5.1 cvpk=928) CHLORIDE (BEAKER) (test 110 meq/L 98-107 wrqa=320) CO2 (BEAKER) (test 26 meq/L 22-29 lill=217) BLOOD UREA NITROGEN 16 mg/dL 7-21 (BEAKER) (test tpcx=290) CREATININE (BEAKER) (test 0.93 mg/dL 0.57-1.25 vpgm=304) GLUCOSE RANDOM (BEAKER) 94 mg/dL 70-105 (test zovf=888) CALCIUM (BEAKER) (test 9.1 mg/dL 8.4-10.2 vzzk=552) EGFR (BEAKER) (test 59 mL/min/1.73 sq m ESTIMATED GFR IS NOT zhvx=2451) ACCURATE CREATININE CLEARANCE IN PREDICTING GLOMERULAR FILTRATION RATE. ESTIMATED GFR IS NOT APPLICABLE FOR DIALYSIS PATIENTS. [id number] 03:38:00 Test Item Value Reference Range Comments PARTIAL THROMBOPLASTIN TIME (BEAKER) (test 25.4 seconds 22.5-36.0 vyqo=925) Prior to initiating heparinCBC (HEMOGRAM ONLY)2018-03-30 03:31:00 Test Item Value Reference Range Comments WHITE BLOOD CELL COUNT (BEAKER) (test ehss=116) 6.2 K/ L 3.5-10.5 RED BLOOD CELL COUNT (BEAKER) (test uzys=067) 4.05 M/ L 3.93-5.22 HEMOGLOBIN (BEAKER) (test kcsb=588) 12.1 GM/DL 11.2-15.7 HEMATOCRIT (BEAKER) (test buuc=556) 37.8 % 34.1-44.9 MEAN CORPUSCULAR VOLUME (BEAKER) (test tobn=010) 93.3 fL 79.4-94.8 MEAN CORPUSCULAR HEMOGLOBIN (BEAKER) (test 29.9 pg 25.6-32.2 mtdx=088) MEAN CORPUSCULAR HEMOGLOBIN CONC (BEAKER) (test 32.0 GM/DL 32.2-35.5 gszc=817) RED CELL DISTRIBUTION WIDTH (BEAKER) (test 12.3 % 11.7-14.4 ycvm=976) PLATELET COUNT (BEAKER) (test bzji=104) 182 K/CU MM 150-450 MEAN PLATELET VOLUME (BEAKER) (test vzdr=456) 12.1 fL 9.4-12.3 NUCLEATED RED BLOOD CELLS (BEAKER) (test 0 /100 WBC 0-0 zkvm=383) B-TYPE NATRIURETIC FACTOR (BNP)2018-03-29 22:31:00 Test Item Value Reference Range Comments B-TYPE NATRIURETIC PEPTIDE (BEAKER) (test xocu=310) 62 pg/mL 0-100 CREATINE KINASE (CK), TOTAL AND [id number] 19:40:00 Test Item Value Reference Range Comments CREATINE KINASE TOTAL (BEAKER) (test sgsd=891) 55 U/L 29-200 CREATINE KINASE-MB (BEAKER) (test jfpx=807) 1.1 ng/mL 0.0-6.6 CREATINE KINASE-MB INDEX (BEAKER) (test dbgd=478) 2.0 % CK-MB Reference Range:<6.7 Normal6.7-10.0 Borderline>10.0 AbnormalTROPONIN [id number] 19:40:00 Test Item Value Reference Range Comments TROPONIN I (BEAKER) (test iayg=736) < ng/mL 0.00-0.03 Troponin I (TnI) levels must be interpreted [...] failure, acidosis, acute neurological disease, and persistent tachyarrhythmia.RAD, CHEST, PA OR AP, 1 [id number] 19:39:00Reason for exam:->CHEST PAINShould this be performed at the bedside?- >NoFINAL REPORT HISTORY : CHEST PAIN. Comparison: None Comment: Single portable view of the chest was obtained. The cardiac silhouette size is within normal limits. No pneumothoraxor pleural effusion is seen. There is some left basilar airspace disease/consolidation that may represent atelectasis. Pneumonitis or aspiration cannot be excluded. Signed: Savi Armentaort Verified Date/Time: 03/29/2018 19:39:19 Reading Location : [facility] [id number] Consult Reading Room URINALYSIS W/ [id number] 19:37:00 Test Item Value Reference Range Comments COLOR (BEAKER) (test xvdx=487) Light Yellow CLARITY (BEAKER) (test ovph=428) Clear SPECIFIC GRAVITY UA (BEAKER) (test 1.004 1.001-1.035 pzam=214) PH UA (BEAKER) (test ahwu=090) 6.0 5.0-8.0 PROTEIN UA (BEAKER) (test ghnb=627) Negative Negative GLUCOSE UA (BEAKER) (test ijld=653) Negative Negative KETONES UA (BEAKER) (test ykpj=468) Negative Negative BILIRUBIN UA (BEAKER) (test qdpi=676) Negative Negative BLOOD UA (BEAKER) (test vzlf=577) Negative Negative NITRITE UA (BEAKER) (test bbtg=821) Negative Negative LEUKOCYTE ESTERASE UA (BEAKER) (test Negative Negative qlem=015) UROBILINOGEN UA (BEAKER) (test ezak=508) 0.2 mg/dL 0.2-1.0 RBC UA (BEAKER) (test juom=370) < /HPF WBC UA (BEAKER) (test jpgo=753) < /HPF SQUAMOUS EPITHELIAL (BEAKER) (test < /HPF vzgj=225) SOURCE(BEAKER) (test zbyd=3182) Urine, Clean Catch [id number] 19:33:00 Test Item Value Reference Range Comments MAGNESIUM (BEAKER) (test nvjt=255) 2.2 mg/dL 1.6-2.6 BASIC METABOLIC [id number] 19:33:00 Test Item Value Reference Range Comments SODIUM (BEAKER) (test 141 meq/L 136-145 arkg=026) POTASSIUM (BEAKER) (test 3.2 meq/L 3.5-5.1 pbnr=570) CHLORIDE (BEAKER) (test 109 meq/L 98-107 cxko=307) CO2 (BEAKER) (test 26 meq/L 22-29 cmga=937) BLOOD UREA NITROGEN 17 mg/dL 7-21 (BEAKER) (test goek=568) CREATININE (BEAKER) (test 1.38 mg/dL 0.57-1.25 plca=200) GLUCOSE RANDOM (BEAKER) 84 mg/dL 70-105 (test stgq=776) CALCIUM (BEAKER) (test 9.5 mg/dL 8.4-10.2 whmc=262) EGFR (BEAKER) (test 37 mL/min/1.73 sq m ESTIMATED GFR IS NOT ytmw=0935) ACCURATE CREATININE CLEARANCE IN PREDICTING GLOMERULAR FILTRATION RATE. ESTIMATED GFR IS NOT APPLICABLE FOR DIALYSIS PATIENTS. HEPATIC FUNCTION [id number] 19:33:00 Test Item Value Reference Range Comments TOTAL PROTEIN (BEAKER) (test xxor=744) 6.3 gm/dL 6.0-8.3 ALBUMIN (BEAKER) (test xtzb=8851) 3.8 g/dL 3.5-5.0 BILIRUBIN TOTAL (BEAKER) (test uyyx=839) 0.3 mg/dL 0.2-1.2 BILIRUBIN DIRECT (BEAKER) (test ljow=172) 0.1 mg/dL 0.1-0.5 ALKALINE PHOSPHATASE (BEAKER) (test yuqh=214) 101 U/L 40-150 AST (SGOT) (BEAKER) (test rnki=256) 20 U/L 5-34 ALT (SGPT) (BEAKER) (test vagh=624) 23 U/L 6-55 [id number] 19:33:00 Test Item Value Reference Range Comments LIPASE (BEAKER) (test mugs=408) 24 U/L 8-78 CBC W/PLT COUNT & AUTO [id number] 19:17:00 Test Item Value Reference Range Comments WHITE BLOOD CELL COUNT (BEAKER) (test jibv=784) 6.4 K/ L 3.5-10.5 RED BLOOD CELL COUNT (BEAKER) (test xune=118) 3.87 M/ L 3.93-5.22 HEMOGLOBIN (BEAKER) (test bmra=164) 11.6 GM/DL 11.2-15.7 HEMATOCRIT (BEAKER) (test iavi=688) 36.5 % 34.1-44.9 MEAN CORPUSCULAR VOLUME (BEAKER) (test wvqt=729) 94.3 fL 79.4-94.8 MEAN CORPUSCULAR HEMOGLOBIN (BEAKER) (test 30.0 pg 25.6-32.2 qkob=723) MEAN CORPUSCULAR HEMOGLOBIN CONC (BEAKER) (test 31.8 GM/DL 32.2-35.5 xnxf=633) RED CELL DISTRIBUTION WIDTH (BEAKER) (test 12.1 % 11.7-14.4 jqqx=355) PLATELET COUNT (BEAKER) (test ymts=515) 175 K/CU MM 150-450 MEAN PLATELET VOLUME (BEAKER) (test yldz=571) 11.9 fL 9.4-12.3 NUCLEATED RED BLOOD CELLS (BEAKER) (test 0 /100 WBC 0-0 zsmf=447) NEUTROPHILS RELATIVE PERCENT (BEAKER) (test 70 % kggc=093) LYMPHOCYTES RELATIVE PERCENT (BEAKER) (test 17 % casn=200) MONOCYTES RELATIVE PERCENT (BEAKER) (test 12 % mxub=160) EOSINOPHILS RELATIVE PERCENT (BEAKER) (test 1 % mchx=383) BASOPHILS RELATIVE PERCENT (BEAKER) (test 0 % uyiz=366) NEUTROPHILS ABSOLUTE COUNT (BEAKER) (test 4.51 K/ L 1.56-6.13 janz=473) LYMPHOCYTES ABSOLUTE COUNT (BEAKER) (test 1.09 K/ L 1.18-3.74 cjnl=814) MONOCYTES ABSOLUTE COUNT (BEAKER) (test 0.74 K/ L 0.24-0.36 nidz=396) EOSINOPHILS ABSOLUTE COUNT (BEAKER) (test 0.04 K/ L 0.04-0.36 xudd=393) BASOPHILS ABSOLUTE COUNT (BEAKER) (test 0.02 K/ L 0.01-0.08 ucej=695) IMMATURE GRANULOCYTES-RELATIVE PERCENT (BEAKER) 0 % 0-1 (test oldr=1985)
--- NOTE | 2018-07-14 12:36 | EKG ---
Test Date: 2018-07-14 Test Time: 12:22:02 Meat Team Lead: DAISY MEASUREMENT RESULTS: Intervals: Rate: 66 ME: 164 QRSD: 92 QT: 406 QTc: 425 [place]: P: 69 ME: 164 QRS: 41 T: 62 INTERPRETIVE STATEMENTS: Normal sinus rhythm Normal ECG Compared to ECG 03/29/2018 12:05:12 No significant changes Electronically Signed On 07-14-18 12:35:59 EARRING MAKER by Geovani Pruett
--- NOTE | 2018-07-14 12:41 | EDPHYS ---
Physician Documentation [facility] Name: Dang Kemp Age: 72 yrs Sex: Female : 1945 Arrival Date: 07/14/2018 Time: 12:05 Bed 4 Private MD: ED Physician Raul Palm HPI: 07/14 12:36 This 72 yrs old Female presents to ER via Ambulatory with complaints of Chest amarjit Pain. 12:36 The patient or guardian reports chest pain that is located primarily in the substernal amarjit area, anterior chest wall, left. Onset: just prior to arrival. The pain radiates to the left shoulder. Associated signs and symptoms: The patient has no apparent associated signs or symptoms. The chest pain is described as a heaviness, a pressure. Duration: The patient or guardian reports a single episode, that is now resolved. Severity of pain: At its worst the pain was moderate in the emergency department the pain has resolved and did so just prior to arrival. The patient has experienced similar episodes in the past, a few times. Historical: - Allergies: 12:11 No Known Allergies; aj1 - Home Meds: 12:11 Coreg Oral [Active]; Nitro Paste Topical [Active]; Synthroid Oral [Active]; Aspirin aj1 Oral [Active]; cholesterol medication [Active]; 12:12 Celexa Oral [Active]; Ambien Oral [Active]; aj1 - PMHx: 12:11 heart disease; Thyroid problem; Angina; aj1 - Immunization history:: Flu vaccine is up to date. - Social history:: Smoking status: Patient/guardian denies using tobacco. - Ebola Screening: : Patient denies travel to an Ebola-affected area in the 21 days before illness onset. - Family history:: not pertinent. ROS: 12:36 Constitutional: Negative for fever, chills, and weight loss, Eyes: Negative for injury, amarjit pain, redness, and discharge, ENT: Negative for injury, pain, and discharge, Neck: Negative for injury, pain, and swelling, Respiratory: Negative for shortness of breath, cough, wheezing, and pleuritic chest pain, Abdomen/GI: Negative for abdominal pain, nausea, vomiting, diarrhea, and constipation, Back: Negative for injury and pain, : Negative for injury, bleeding, discharge, and swelling, MS/Extremity: Negative for injury and deformity, Skin: Negative for injury, rash, and discoloration, Neuro: Negative for headache, weakness, numbness, tingling, and seizure, Psych: Negative for depression, anxiety, suicide ideation, homicidal ideation, and hallucinations, Allergy/Immunology: Negative for hives, rash, and allergies, Endocrine: Negative for neck swelling, polydipsia, polyuria, polyphagia, and marked weight changes, Hematologic/Lymphatic: Negative for swollen nodes, abnormal bleeding, and unusual bruising. 12:36 Cardiovascular: Positive for chest pain. Exam: 12:36 Constitutional: This is a well developed, well nourished patient who is awake, alert, amarjit and in no acute distress. Head/Face: Normocephalic, atraumatic. Eyes: Pupils equal round and reactive to light, extra-ocular motions intact. Lids and lashes normal. Conjunctiva and sclera are non-icteric and not injected. Cornea within normal limits. Periorbital areas with no swelling, redness, or edema. ENT: Nares patent. No nasal discharge, no septal abnormalities noted. Tympanic membranes are normal and external auditory canals are clear. Oropharynx with no redness, swelling, or masses, exudates, or evidence of obstruction, uvula midline. Mucous membranes moist. Neck: Trachea midline, no thyromegaly or masses palpated, and no cervical lymphadenopathy. Supple, full range of motion without nuchal rigidity, or vertebral point tenderness. No Meningismus. Chest/axilla: Normal chest wall appearance and motion. Nontender with no deformity. No lesions are appreciated. Cardiovascular: Regular rate and rhythm with a normal S1 and S2. No gallops, murmurs, or rubs. Normal PMI, no JVD. No pulse deficits. Respiratory: Lungs have equal breath sounds bilaterally, clear to auscultation and percussion. No rales, rhonchi or wheezes noted. No increased work of breathing, no retractions or nasal flaring. Abdomen/GI: Soft, non-tender, with normal bowel sounds. No distension or tympany. No guarding or rebound. No evidence of tenderness throughout. Back: No spinal tenderness. No costovertebral tenderness. Full range of motion. Skin: Warm, dry with normal turgor. Normal color with no rashes, no lesions, and no evidence of cellulitis. MS/ Extremity: Pulses equal, no cyanosis. Neurovascular intact. Full, normal range of motion. Neuro: Awake and alert, GCS 15, oriented to person, place, time, and situation. Cranial nerves II-XII grossly intact. Motor strength 5/5 in all extremities. Sensory grossly intact. Cerebellar exam normal. Normal gait. Psych: Awake, alert, with orientation to person, place and time. Behavior, mood, and affect are within normal limits. 12:36 Musculoskeletal/extremity: DVT Exam: No signs of deep vein thrombosis. no pain, no swelling, no tenderness, negative Homans' sign noted on exam, no appreciated bluish discoloration, no erythema, no increased warmth. Vital Signs: 12:12 BP 132 / 93; Pulse 69; Resp 18; Temp 97.2; Pulse Ox 100% on R/A; Weight 71.67 kg (R); aj1 Height 5 ft. 4 in. (162.56 cm); Pain 2/10; 13:00 BP 126 / 86; Pulse 66; Resp 16; Pulse Ox 100% on R/A; hb 14:00 BP 126 / 66; Pulse 56; Resp 14; Pulse Ox 100% on R/A; hb 15:00 BP 124 / 64; Pulse 57; Resp 16; Pulse Ox 100% on R/A; Pain 1/10; hb 12:12 Body Mass Index 27.12 (71.67 kg, 162.56 cm) aj1 MDM: 12:26 Patient medically screened. [facility] 12:38 Data reviewed: vital signs, nurses notes, lab test result(s), EKG, radiologic studies, amarjit plain films. 07/14 12:14 Order name: Basic Metabolic Panel; Complete Time: 13:27 snw 07/14 12:14 Order name: CBC with Diff; Complete Time: 13:27 snw 07/14 12:14 Order name: LFT's; Complete Time: 13:27 snw 07/14 12:14 Order name: Magnesium; Complete Time: 13:27 snw 07/14 12:14 Order name: NT PRO-BNP; Complete Time: 13:27 snw 07/14 12:14 Order name: PT-INR; Complete Time: 13:27 snw 07/14 12:14 Order name: Troponin (emerg Dept Use Only); Complete Time: 13:27 snw 07/14 12:14 Order name: XRAY Chest (1 view) [facility] 07/14 12:14 Order name: TSH; Complete Time: 13:27 snw 07/14 12:14 Order name: TS [facility] 07/14 12:36 Order name: Lipase amarjit 07/14 13:11 Order name: ABO/RH no charge; Complete Time: 13:27 EDKY 07/14 13:53 Order name: Urine Dipstick--Ancillary (enter results) bd 07/14 14:37 Order name: Urine Dipstick-Ancillary EDKY 07/14 12:14 Order name: EKG; Complete Time: 12:28 snw 07/14 12:14 Order name: Cardiac monitoring; Complete Time: 12:44 snw 07/14 12:14 Order name: EKG - Nurse/Tech; Complete Time: 12:44 snw 07/14 12:14 Order name: IV Saline Lock; Complete Time: 12:44 snw 07/14 12:14 Order name: Labs collected and sent; Complete Time: 12:44 snw 07/14 12:14 Order name: O2 Per Protocol; Complete Time: 12:44 snw 07/14 12:14 Order name: O2 Sat Monitoring; Complete Time: 12:44 snw 07/14 13:05 Order name: CONS Physician Consult [facility] 07/14 13:05 Order name: Echo with Doppler EDKY 07/14 14:18 Order name: RAD [facility] 07/14 14:57 Order name: Diet Regular; Complete Time: 14:57 hb Administered Medications: 12:46 Drug: Lovenox 1 mg/kg Route: Sub-Q; Site: right lower abdomen; aj1 13:33 Follow up: Response: No adverse reaction hb 12:46 Drug: Lopressor 25 mg Route: PO; aj1 13:33 Follow up: Response: No adverse reaction hb 12:46 Drug: Pepcid 20 mg Route: IVP; Site: left antecubital; aj1 13:15 Follow up: Response: No adverse reaction hb 12:47 Drug: Aspirin 162 mg Route: PO; aj1 13:33 Follow up: Response: No adverse reaction hb 15:17 Drug: Acetaminophen 1000 mg Route: PO; hb 16:00 Follow up: Response: No adverse reaction hb Disposition: 07/14/18 12:40 Hospitalization ordered by Clovis Guy for Observation. Preliminary diagnosis are Other chest pain, Angina pectoris. - Bed requested for Telemetry/MedSurg (observation). - Status is Observation. hb - Condition is Fair. - Problem is new. - Symptoms have improved. UTI on Admission? No Signatures: Dispatcher [employer] EDTaylor Cassidy, RN RN aj1 Kassandra Pyle RN RN Raul Abad MD MD cha Therrien, Shelly, MACARONI PRESS OPERATOR-C MACARONI PRESS OPERATOR-Csnw Jaylyn Guzman RN RN hb Corrections: (The following items were deleted from the chart) 15:34 12:40 Hospitalization Ordered by Clovis Guy MD for Observation. Preliminary diagnosis dw is Other chest pain; Angina pectoris. Bed requested for Telemetry/MedSurg (observation). Status is Observation. Condition is Fair. Problem is new. Symptoms have improved. UTI on Admission? No. amarjit 16:41 15:34 07/14/2018 12:40 Hospitalization Ordered by Clovis Guy MD for Observation. hb Preliminary diagnosis is Other chest pain; Angina pectoris. Bed requested for Telemetry/MedSurg (observation). Status is Observation. Condition is Fair. Problem is new. Symptoms have improved. UTI on Admission? No. dw
--- NOTE | 2018-07-14 12:41 | ER ---
Nurse's Notes [facility] Name: Dang Kemp Age: 72 yrs Sex: Female : 1945 Arrival Date: 07/14/2018 Time: 12:05 Bed 4 Private MD: Diagnosis: Other chest pain;Angina pectoris Presentation: 07/14 12:08 Presenting complaint: Patient states: She was at yoga class approximately 15 minutes aj1 ago when she started feeling nauseated and having substernal chest pain, patient describes pain as pressure. Reports SOB and dizziness. Patient reports that she has a history of angina, but her pain has not been relieved with rest. Patient did not have her medications with her so she did not take nitro. Transition of care: patient was not received from another setting of care. Onset of symptoms was July 14, 2018 at 11:55. Risk Assessment: Do you want to hurt yourself or someone else? Patient reports no desire to harm self or others. Initial Sepsis Screen: Does the patient meet any 2 criteria? No. Patient's initial sepsis screen is negative. Does the patient have a suspected source of infection? No. Patient's initial sepsis screen is negative. Care prior to arrival: None. 12:08 Method Of Arrival: Ambulatory aj1 12:08 Acuity: CATARINO 2 aj1 Triage Assessment: 12:12 General: Appears in no apparent distress. uncomfortable, Behavior is calm, cooperative, aj1 appropriate for age. Pain: Complains of pain in mid-sternal area Pain currently is 2 out of 10 on a pain scale. Quality of pain is described as pressure. Neuro: Level of Consciousness is awake, alert, obeys commands. Cardiovascular: Patient's skin is warm and dry. Respiratory: Airway is patent Respiratory effort is even, unlabored, Respiratory pattern is regular, symmetrical. Historical: - Allergies: 12:11 No Known Allergies; aj1 - Home Meds: 12:11 Coreg Oral [Active]; Nitro Paste Topical [Active]; Synthroid Oral [Active]; Aspirin aj1 Oral [Active]; cholesterol medication [Active]; 12:12 Celexa Oral [Active]; Ambien Oral [Active]; aj1 - PMHx: 12:11 heart disease; Thyroid problem; Angina; aj1 - Immunization history:: Flu vaccine is up to date. - Social history:: Smoking status: Patient/guardian denies using tobacco. - Ebola Screening: : Patient denies travel to an Ebola-affected area in the 21 days before illness onset. - Family history:: not pertinent. Screenin:30 Abuse screen: Denies threats or abuse. Denies injuries from another. Nutritional hb screening: No deficits noted. Tuberculosis screening: No symptoms or risk factors identified. Fall Risk None identified. Assessment: 12:30 General: Appears in no apparent distress. Behavior is calm, cooperative. Pain: hb Complains of pain in mid-sternal area Pain does not radiate. Pain currently is 2 out of 10 on a pain scale. at worst was 8 out of 10 on a pain scale. Quality of pain is described as pressure, Pain began suddenly, 1 hour ago. Neuro: Level of Consciousness is awake, alert, obeys commands, Oriented to person, place, time, situation. Cardiovascular: Heart tones S1 S2 present Capillary refill < 3 seconds Patient's skin is warm and dry. Respiratory: Airway is patent Trachea midline Respiratory effort is even, unlabored, Respiratory pattern is regular, symmetrical, Breath sounds are clear bilaterally. GI: No signs and/or symptoms were reported involving the gastrointestinal system. : No signs and/or symptoms were reported regarding the genitourinary system. EENT: No signs and/or symptoms were reported regarding the EENT system. Derm: Skin is intact, is healthy with good turgor, Skin is pink, warm \T\ dry. 13:30 Reassessment: Patient appears in no apparent distress at this time. No changes from hb previously documented assessment. Patient and/or family updated on plan of care and expected duration. Pain level reassessed. Patient is alert, oriented x 3, equal unlabored respirations, skin warm/dry/pink. 14:15 Reassessment: Patient appears in no apparent distress at this time. No changes from hb previously documented assessment. Patient and/or family updated on plan of care and expected duration. Pain level reassessed. Patient is alert, oriented x 3, equal unlabored respirations, skin warm/dry/pink. 15:04 Reassessment: ECHO at bedside. hb 15:15 Reassessment: Pt c/o headache 12/31. Dr Palm notified, Tylenol administered as hb ordered. Vital Signs: 12:12 BP 132 / 93; Pulse 69; Resp 18; Temp 97.2; Pulse Ox 100% on R/A; Weight 71.67 kg (R); aj1 Height 5 ft. 4 in. (162.56 cm); Pain 2/10; 13:00 BP 126 / 86; Pulse 66; Resp 16; Pulse Ox 100% on R/A; hb 14:00 BP 126 / 66; Pulse 56; Resp 14; Pulse Ox 100% on R/A; hb 15:00 BP 124 / 64; Pulse 57; Resp 16; Pulse Ox 100% on R/A; Pain 1/10; hb 12:12 Body Mass Index 27.12 (71.67 kg, 162.56 cm) aj1 ED Course: 12:05 Patient arrived in ED. tw3 12:10 Triage completed. aj1 12:12 Arm band placed on Patient placed in an exam room. aj1 12:26 Raul Palm MD is Attending Physician. amarjit 12:30 Patient has correct armband on for positive identification. Placed in gown. Bed in low hb position. Call light in reach. Side rails up X 1. telemetry monitor on. Pulse ox on. NIBP on. 12:30 Inserted saline lock: 20 gauge in right antecubital area, using aseptic technique. hb Blood collected. Patient maintains SpO2 saturation greater than 95% on room air. 12:39 Clovis Guy MD is Hospitalizing Provider. amarjit 12:40 Jaylyn Guzman RN is Primary Nurse. hb 12:50 No provider procedures requiring assistance completed. Patient admitted, IV remains in sg place. intact, No redness/swelling at site. Administered Medications: 12:46 Drug: Lovenox 1 mg/kg Route: Sub-Q; Site: right lower abdomen; aj1 13:33 Follow up: Response: No adverse reaction hb 12:46 Drug: Lopressor 25 mg Route: PO; aj1 13:33 Follow up: Response: No adverse reaction hb 12:46 Drug: Pepcid 20 mg Route: IVP; Site: left antecubital; aj1 13:15 Follow up: Response: No adverse reaction hb 12:47 Drug: Aspirin 162 mg Route: PO; aj1 13:33 Follow up: Response: No adverse reaction hb 15:17 Drug: Acetaminophen 1000 mg Route: PO; hb 16:00 Follow up: Response: No adverse reaction hb Outcome: 12:40 Decision to Hospitalize by Provider. amarjit 16:10 Transferred by ground EMS to [facility], [facility], Transfer form completed. sg 16:10 Condition: stable 16:10 Instructed on the need for admit, Demonstrated understanding of instructions. 16:41 Patient left the ED. hb Signatures: Taylor Faye RN RN aj1 Tommy Salamanca RN RN sg Anderson, Corey, MD MD cha Baxter, Heather, RN RN hb Wade, Tia tw3 Corrections: (The following items were deleted from the chart) 15:19 14:00 BP 126 / 5; Pulse 56bpm; Resp 14bpm; Pulse Ox 100% RA; hb hb
[2018-07-14 12:46] LABS: Absolute Lymphocytes (CBC) 1.9 K/uL (0.7-4.9); Absolute Monocytes 0.7 K/uL (0.1-1.3); Absolute Neutrophil 4.9 K/uL (1.8-8.0); Basophils % 0.8 % (0-1.3); Eosinophils % 0.4 % (0-4.4); Hematocrit 37.9 % (36.0-45.0); Lymphocytes % 25.2 % (15.3-44.8); MCH 30.4 pg (27.0-35.0); MCV 88.2 fL (80-100); MPV 10.4 fL (7.6-11.3); RBC Red Blood Cell Count 4.29 M/uL (3.86-4.86)
[2018-07-14] MEDS ORDERED: ASPIRIN 81 MG CHEWABLE TABLET ONE (12:47)
[2018-07-14] MEDS ORDERED: FAMOTIDINE 20 MG/2 ML VIAL IV ONE (12:48)
[2018-07-14] MEDS ORDERED: ENOXAPARIN 80 MG/0.8 ML SQ ONE (12:48)
[2018-07-14] MEDS ORDERED: METOPROLOL TAR 25 MG TAB ONE (12:48)
[2018-07-14 12:52] LABS: Protime INR 1.01
[2018-07-14 13:11] LABS: ALT/SGPT 25 U/L (12-78); AST/SGOT 19 U/L (15-37); Albumin 3.7 g/dL (3.4-5.0); Alkaline Phosphatase 119 U/L (45-117); BUN Blood Urea Nitrogen 18 mg/dL (7-18); Bicarbonate 25 mmol/L (21-32); Bilirubin Direct 0.1 mg/dL (0-0.2); Bilirubin Total 0.7 mg/dL (0.2-1.0); Glucose Level 107 mg/dL (74-106); NT PRO-BNP 197 pg/mL (<125); Potassium 3.9 mmol/L (3.5-5.1); Sodium Level 140 mmol/L (136-145); Thyroid Stimulating Hormone 0.429 uIU/mL (0.360-3.740); Troponin (Emerg Dept Use Only) < 0.02 ng/mL (0.0-0.045)
--- NOTE | 2018-07-14 14:17 | RAD REPORT ---
EXAM DESCRIPTION: RAD - Chest Single View - 07/14/2018 2:06 pm CLINICAL HISTORY: CHEST PAIN Chest pain. COMPARISON: Chest Single View dated 03/29/2018; Chest Pa And Lat (2 Views) dated 03/17/2017; CHEST PA A ND LAT 2 VIEW dated 06/28/2012 FINDINGS: Portable technique limits examination quality. The lungs are grossly clear. The heart is normal in size. No displaced fractures. IMPRESSION: No acute intrathoracic process suspected.
[2018-07-14 14:37] LABS: Urine Blood NEGATIVE (NEG); Urine Glucose NEGATIVE (NEG); Urine Protein NEGATIVE (NEG); Urine Specific Gravity <1.005 (1.005-1.030); Urine pH 5.5 (5.0-7.0)
--- NOTE | 2018-07-14 15:04 | P.HP ---
Certification for Inpatient Patient admitted to: Observation With expected LOS: <2 Midnights Practitioner: I am a practitioner with admitting privileges, knowledge of patient current condition, hospital course, and medical plan of care. Services: Services provided to patient in accordance with Admission requirements found in Title 42 Section 412.3 of the Code of Federal Regulations Patient History Date of Service: 07/14/18 Primary Care Provider: Dr. Prasad Reason for admission: Chest pain History of Present Illness: This 73-year-old female with history of angina, hypertension, CAD, anxiety, thyroid and hyperlipidemia admitted for chest pain. Per patient, chest tightness/pressure started on right side, then radiated to the left. Describes it as a tightness/pressure-like pain, associated with nausea. It lasted for approximately 15 min, resolved spontaneously. She denies any shortness of breath, dizziness, vision changes, speech changes, syncopal/presyncopal episode , diarrhea or constipation, fevers, chills or any symptoms. At the time of my exam, patient is alert oriented x3, hemodynamically stable and pain had resolved. She will be admitted for observation for 24 hr, to trend troponins and symptomatic management. Allergies No Known Allergies Allergy (Unverified 03/29/18 15:44) - Past Medical/Surgical History -: Hypertension -: Hyperlipidemia -: Coronary artery disease, [place] artery -: Thyroid disease -: Angina Review of Systems General: Unremarkable Eyes: Unremarkable ENT: Unremarkable Respiratory: Unremarkable Cardiovascular: Chest Pain, As per HPI Gastrointestinal: Nausea, As per HPI Genitourinary: Unremarkable Musculoskeletal: Unremarkable Integumentary: Unremarkable Neurological: Unremarkable Lymphatics: Unremarkable Physical Examination - Physical Exam General: Alert, In no apparent distress, Oriented x3 HEENT: Atraumatic, PERRLA, Mucous membr. moist/pink, EOMI, Sclerae nonicteric Neck: Supple, 2+ carotid pulse no bruit, No LAD, Without JVD or thyroid abnormality Respiratory: Clear to auscultation bilaterally, Normal air movement Cardiovascular: Regular rate/rhythm, Normal S1 S2 Gastrointestinal: Normal bowel sounds, No tenderness Musculoskeletal: No tenderness Integumentary: No rashes Neurological: Normal gait, Normal speech, Normal strength at 5/5 x4 extr, Normal tone, Normal affect - Studies Laboratory Data (last 24 hrs) 07/14/18 12:30: Lipase 159 07/14/18 12:30: PT 11.9, INR 1.01 07/14/18 12:30: WBC 7.7, Hgb 13.0, Hct 37.9, Plt Count 215 07/14/18 12:30: Sodium 140, Potassium 3.9, BUN 18, Creatinine 0.90, Glucose 107 H, Magnesium 2.0, Total Bilirubin 0.7, AST 19, ALT 25, Alkaline Phosphatase 119 H Assessment and Plan - Plan This is a 71-year-old female with: Chest pain, rule out [place] Trend troponins Restart beta-danielle, aspirin, statin. Pain control with IV morphine as needed. Oxygen as needed Last angio in March 2018, requiring no stent placement. Cardiology consulted. Trial of Protonix to see if symptom improves. Essential Hypertension Stable, will restart home medications Hypothyroidism Stable, will restart home levothyroxine 100 mcg Coronary artery disease, no history of surgical interventions/stent placement Last angiogram and March 2018, requiring no stent placement. Manage as noted above Anxiety Stable at this time. Will restart home citalopram GERD patient takes Nexium at home. Will start Protonix while in hospital. DVT prophylaxis: Lovenox GI prophylaxis: Protonix Diet: Heart healthy Disposition: Admit to floor with tele. Pending symptomatic improvement. Likely discharge home the next 24-48 hr. Discharge Plan: Home - Advance Directives Does patient have a Living Will: No Does patient have a Durable POA for Healthcare: No
[2018-07-14] MEDS ORDERED: ACETAMINOPHEN 500 MG TAB ONE (15:22)
[2018-07-14] MEDS ORDERED: ONDANSETRON 4 MG/2 ML VIAL IV PRN (15:52)
[2018-07-14] MEDS ORDERED: NITROGLYCERIN 0.4 MG/TAB SL PRN (15:52)
[2018-07-14] MEDS ORDERED: MORPHINE 2 MG/ML SYR IV PRN (15:52)
[2018-07-14] MEDS ORDERED: ALBUTEROL 2.5 MG/3 ML NEB SOL NEB PRN (15:52)
[2018-07-14 18:35] VITALS: BMI 27.1
--- NOTE | 2018-07-14 19:55 | CON ---
History Of Present Illness: Ms. Kemp came to the hospital because of chest pain. It is a pressure -like feeling she gets. She gets it whenever she exerts herself too much. She sees a flask pusher joni Painter, who has done 2 cardiac caths, the most recent one was March this year, both showed minima l CAD. No stents were recommended. She has never had a stent or bypass surgery. She uses a nitrogl ycerin patch and nitro and has used fewer than 10 nitroglycerin pills over the last 6 months. She wa s in a yoga class, started to get first pain in the right side when she was stretching and then later the pressure in the chest. It all resolved since she has been in our emergency room, feeling fine e tiago since. An EKG and cardiac enzymes are normal. Physical Examination: General: She appears to be her stated age of 72 or younger. She is alert, oriented, pleasant, not i n distress. Lungs: Clear. Heart: Normal. Abdomen: Soft. Extremities: Normal. Social History: The patient uses no tobacco. No illegal drugs. Rare alcohol. Medications: Nitroglycerin patch, Coreg, and a cholesterol medicine, we do not know the name of it, Celexa, and Ambien. Impression: The patient seems to be stable. She has stable angina with stable EKG and blood tests, vital signs. If she remains stable, she will be discharged home to resume care with her usual flask pusher. RODERICK Voice ID: [id number] Report ID: [id number]
[2018-07-14] MEDS ORDERED: ESTRADIOL VG SCH (23:30)
[2018-07-15] MEDS: AMLODIPINE 5 MG TAB PO SCH ×2 (00:16→09:09)
[2018-07-15] MEDS: CITALOPRAM 10 MG TABLET PO SCH ×2 (00:16→09:00)
[2018-07-15 05:37] LABS: Absolute Lymphocytes (CBC) 2.1 K/uL (0.7-4.9); Absolute Monocytes 0.6 K/uL (0.1-1.3); Absolute Neutrophil 3.2 K/uL (1.8-8.0); Basophils % 0.4 % (0-1.3); Eosinophils % 0.7 % (0-4.4); Hematocrit 35.4 % (36.0-45.0); Lymphocytes % 35.5 % (15.3-44.8); MCH 30.2 pg (27.0-35.0); MCV 87.8 fL (80-100); MPV 10.6 fL (7.6-11.3); Monocytes % 9.8 % (3.3-12.3); RBC Red Blood Cell Count 4.04 M/uL (3.86-4.86)
[2018-07-15 05:49] LABS: Albumin 3.3 g/dL (3.4-5.0); Bilirubin Total 0.3 mg/dL (0.2-1.0); Potassium 3.8 mmol/L (3.5-5.1); Protein, Total 6.3 g/dL (6.4-8.2)
[2018-07-15] MEDS ORDERED: LEVOTHYROXINE SOD 0.1 MG TAB PO SCH (06:00)
[2018-07-15] MEDS ORDERED: LIOTHYRONINE SOD 5 MCG TAB PO SCH (06:00)
[2018-07-15] MEDS ORDERED: CARVEDILOL 6.25 MG TAB PO SCH (07:30)
[2018-07-15] MEDS ORDERED: CETIRIZINE HCL 5 MG TABLET PO SCH (09:00)
[2018-07-15] MEDS ORDERED: ASPIRIN 81 MG CHEWABLE TABLET PO SCH (09:00)
[2018-07-15] MEDS ORDERED: POTASSIUM CL SA 10 MEQ TAB PO ONE (09:00)
[2018-07-15] MEDS ORDERED: ENOXAPARIN 40 MG/0.4 ML SQ SCH (09:00)
--- NOTE | 2018-07-15 09:25 | ECHO ---
HEIGHT: 5 ft 4 in WEIGHT: 158 lb 0 oz DATE OF STUDY: 07/14/[address]: Raul Palm MD 2-DIMENSIONAL: YES M.MODE: YES DOPPLER: YES COLOR FLOW: YES TDS: PORTABLE: DEFINITY: BUBBLE STUDY: DIAGNOSIS: CHEST PAIN CARDIAC HISTORY: CATHERIZATION: NO SURGERY: NO PROSTHETIC VALVE: NO PACEMAKER: NO MEASUREMENTS (cm) DIASTOLIC (NORMALS) SYSTOLIC (NORMALS) IVSd 1.0 (0.6-1.2) LA Diam 3.3 (1.9-4.0) LVEF 61% LVIDd 4.2 (3.5-5.7) LVIDs 2.9 (2.0-3.5) %FS 32% LVPWd 1.0 (0.6-1.2) Ao Diam 2.6 (2.0-3.7) 2 DIMENSIONAL ASSESSMENT: RIGHT ATRIUM: NORMAL LEFT ATRIUM: NORMAL RIGHT VENTRICLE: NORMAL LEFT VENTRICLE: NORMAL TRICUSPID VALVE: NORMAL MITRAL VALVE: NORMAL PULMONIC VALVE: NORMAL AORTIC VALVE: NORMAL PERICARDIAL EFFUSION: NONE AORTIC ROOT: NORMAL LEFT VENTRICULAR WALL MOTION: NORMAL DOPPLER/COLOR FLOW: PHYSIOLOGIC TRICUSPID REGURGITATION. NORMAL RIGHT VENTRICULAR SYSTOLIC PRESSURE. COMMENTS: NORMAL TWO DIMENSIONAL ECHOCARDIOGRAM. TECHNOLOGIST: GIOVANNA GRACIA
--- NOTE | 2018-07-15 09:46 | CON ---
CARDIOLOGY CONSULT Ms. Kemp has normal enzymes, a stable pattern of angina and I recommend she be discharged home and follow up with her usual technical sales engineer who has done a cardiac cath as recently as March 2018. RODERICK Voice ID: [id number] Report ID: [id number]
[2018-07-15 09:47] VITALS: O2SAT 97
[2018-07-15 12:16] VITALS: BP 120/69; TEMP 98.1
--- NOTE | 2018-07-15 16:23 | P.SSS ---
Patient History Date of Service: 07/15/18 Primary Care Provider: Dr. Prasad Reason for admission: Chest pain History of Present Illness: This 73-year-old female with history of angina, hypertension, CAD, anxiety, thyroid and hyperlipidemia admitted for chest pain. Per patient, chest tightness/pressure started on right side, then radiated to the left. Describes it as a tightness/pressure-like pain, associated with nausea. It lasted for approximately 15 min, resolved spontaneously. She denies any shortness of breath, dizziness, vision changes, speech changes, syncopal/presyncopal episode , diarrhea or constipation, fevers, chills or any symptoms. At the time of my exam, patient is alert oriented x3, hemodynamically stable and pain had resolved. She will be admitted for observation for 24 hr, to trend troponins and symptomatic management. Allergies No Known Allergies Allergy (Verified 07/14/18 18:11) Home Medications: Amlodipine Besylate 5 mg PO DAILY 07/14/18 Aspirin 81 mg PO DAILY 07/14/18 Atorvastatin Calcium 10 mg PO BEDTIME 07/14/18 Carvedilol 6.25 mg PO BIDAC 07/14/18 Cetirizine HCl [Zyrtec] 10 mg PO DAILY 07/14/18 Citalopram [Celexa*] 40 mg PO DAILY 07/14/18 Estradiol [Estring] 1 each VG SEECOM 07/14/18 Levothyroxine [Synthroid*] 100 mcg PO [id number] 07/14/18 Liothyronine Sodium [Cytomel] 5 mcg PO [id number] 07/14/18 Zolpidem Tartrate [Ambien] 10 mg PO BEDTIME 07/14/18 - Past Medical/Surgical History Has patient received pneumonia vaccine in the past: Yes Diabetic: No -: Hypertension -: Hyperlipidemia -: Coronary artery disease, [place] artery -: Thyroid disease -: Angina -: gall bladder and colon resection- - Family History Father -: Heart disease Mother -: Stroke Sister -: Cancer - Social History Smoking Status: Former smoker Alcohol use: No CD- Drugs: No Caffeine use: Yes Place of Residence: Home Review of Systems As noted Physical Examination - Vital Signs Temperature: 98.1 F Blood Pressure: 120/69 Pulse: 66 Respirations: 18 Pulse Ox (%): 96 - Physical Exam General: Alert, In no apparent distress, Oriented x3 HEENT: Atraumatic, PERRLA, Mucous membr. moist/pink, EOMI, Sclerae nonicteric Neck: Supple, 2+ carotid pulse no bruit, No LAD, Without JVD or thyroid abnormality Respiratory: Clear to auscultation bilaterally, Normal air movement Cardiovascular: Regular rate/rhythm, Normal S1 S2 Gastrointestinal: Normal bowel sounds, No tenderness Musculoskeletal: No tenderness Integumentary: No rashes Neurological: Normal gait, Normal speech, Normal strength at 5/5 x4 extr, Normal tone, Normal affect Lymphatics: No axilla or inguinal lymphadenopathy Treatment Summary: Patient was admitted for chest pain, cardiology was consulted. Her troponins remained negative, no changes on EKG, symptoms resolved. She was cleared by cardiology for discharge with outpatient followup with her branch employment coordinator in [place], - Disposition Disposition: ROUTINE DISCHARGE Condition: GOOD Patient Discharge Instructions: Please follow up with your branch employment coordinator in the next 1-2 weeks. Please follow up with your primary care physician in 1 week Diet: AHA Activity: Ad deni Physician Review: Patient Assessed, Agree with Above Assessment and Plan Time Spent Managing Pts Care (In Minutes): 45
[2018-07-15] MEDS ORDERED: ATORVASTATIN 10 MG TAB PO SCH (21:00)
[2018-07-15] MEDS ORDERED: ZOLPIDEM TARTRATE 10 MG TABLET PO SCH (21:00)
== END 2018-07-15 12:58 | disposition home or self-care (01) ==
LOC: ER 12:05 → ERHOLD 12:41 → 4TH 16:10
PROVIDERS: ADMIT Family Medicine; ATTEND Family Medicine
DX: I25.119 Atherosclerotic heart disease of native coronary artery with unspecified angina pectoris (principal); F41.9 Anxiety disorder, unspecified; E78.5 Hyperlipidemia, unspecified; Z79.82 Long term (current) use of aspirin
CPT/HCPCS: 36415; 71045; 80048; 80053; 80076; 81003; 83690; 83735; 83880; 84443; 84484; 85025 ×2; 85610; 86850; 86900; 86901; 93005; 93306; 94760 ×3; 96372; 96374; 99285; J1650 ×2; G0378

== ENCOUNTER 2020-09-12 12:34 | Emergency (ER) | payer OTHER ==
--- OUTSIDE RECORDS SUMMARY | 2020-09-12 12:36 | XMS REPORT | Clinical Summary ---
:1945 Author Organization [facility] Address [address] [place] [address] Care Team Providers Name Role Phone System, Not In Primary Care Provider Unavailable Allergies No Known Allergies Medications Medication Sig Dispensed Refills Start Date End Date Status esomeprazole (NEXIUM) Take 20 mg by 0 Active 20 MG capsule mouth daily. amLODIPine (NORVASC) Take 10 mg by 0 Active 10 MG tablet mouth daily. estradiol (ESTRACE) Take 0.5 mg by 0 Active 0.5 MG tablet mouth daily. zolpidem (AMBIEN) 10 Take 10 mg by 0 Active mg tablet mouth every night as needed for Insomnia. atorvastatin (LIPITOR) Take 40 mg by 0 Active 20 MG tablet mouth daily . ranolazine (RANEXA) Take 500 mg by 0 Active 500 MG 12 hr tablet mouth 2 (two) times daily. cetirizine (ZYRTEC) 10 Take 10 mg by 0 Active MG chewable tablet mouth daily. estradiol (ESTRING) 2 Place 2 mg 0 Active mg (7.5 mcg /24 hour) vaginally every 3 vaginal ring (three) months follow package directions . aspirin 81 MG chewable Take 81 mg by 0 Active tablet mouth daily. citalopram (CELEXA) 40 Take 60 mg by 0 Active MG tablet mouth daily. levothyroxine Take 100 mcg by 0 Active (SYNTHROID, mouth Every LEVOTHROID) 100 MCG morning on an tablet empty stomach. liothyronine (CYTOMEL) Take 5 mcg by 0 Active 5 MCG tablet mouth daily. Active Problems Problem Noted Date CAD (coronary artery disease) 03/31/2018 Chest pain 03/20/2015 Abnormal cardiovascular function study 03/20/2015 Social History Tobacco Use Types Packs/Day Years Used Date Never Smoker Smokeless Tobacco: Never Used Alcohol Use Drinks/Week oz/Week Comments Yes "not much" Sex Assigned at Date Recorded Not on file Last Filed Vital Signs Not on file Plan of Treatment Health Maintenance Due Date Last Done Comments COLON CANCER SCREENING COLONOSCOPY 1945 PNEUMOCOCCAL 65+ YRS (1 of 1 - [id number]) 2009 MEDICARE ANNUAL WELLNESS (YEAR 2 or FIRST YEAR if no 08/25/2015 IPPE) INFLUENZA VACCINE (#1) 2020 Results Not on fileafter 09/12/2019 Insurance Payer Benefit Plan / Subscriber ID Effective Dates Phone Addre ss Type Group [employer]ET[employer] - [employer] MEDICARE [id number] 2014-Deny [phone] [address] MEDICARE MGD HMO POS PPO t [id number] [place] [address] Advance Directives For more information, please contact: [phone] Code Status Date Activated Date Inactivated Comments Full Code 03/30/2018 10:13 AM 03/31/2018 8:31 PM This code status was determined by: Patient Full Code 03/20/2015 7:59 AM 03/20/2015 3:33 PM This code status was determined by: Patient
--- OUTSIDE RECORDS SUMMARY | 2020-09-12 12:37 | XMS REPORT | Continuity of Care Document ---
:1945 Author Organization [facility] t Address [address] [place] [address] Care Team Providers Name Role Phone System, Not In Primary Care Physician Unavailable Christiane Pham MD Attending Clinician TAMMIE MIRAMONTES Attending Clinician Unavailable NI YI Admitting Clinician Unavailable Payers Payer Name Policy Type Policy Number Effective Date Expiration Date S ource Problems Condition Condition Condition Status Onset Resolution Last Treating Co mments Source Name Details Category Date Date Treatment Clinician Date CAD CAD Disease Active [facility] St (coronary (coronary 03-31 [facility] artery artery 00:00: Medical disease) disease) 00 Center Chest pain Chest pain Disease [facility] Abnormal Abnormal Disease [facility] ulaz 00:00: Medical function function 00 Center study study Allergies, Adverse Reactions, Alerts Allergy Allergy Status Severity Reaction(s) Onset Inactive Treating Comm ents Source Name Type Date Date Clinician adhesive DA Active U 2019-08 [facility] tape 09-16 [place] [facility] No Known DA Active [facility] Allergie 09-11 [place] [facility] 00:[facility] Social History Social Habit Start Date Stop Date Quantity Comments Source Sex Assigned At [facility] Tobacco use and 2018-04-01 2018-04-[address] [facility] - exposure 00:[facility]:00 [facility]:00 [facility] Center Alcohol intake 2018-04-01 2018-04-01 [facility] (finding) Alcohol Comment 2015-03-20 2015-03-20 "not much" [facility] Smoking Status Start Date Stop Date Source Never [facility] Medications Ordered Filled Start Stop Current Ordering Indication Dosage Frequency Signature Comments Components Source Medication Medication Date Date Medication? Clinician (SIG) Name Name esomeprazol Yes 20mg QD Take [address] [facility] (NEXIUM) 8-08 by [facility] - 20 MG 18:30: daily. Medical capsule 37 [place] amLODIPine Yes 10mg QD Take [address] (NORVASC) 8-08 by [facility] - 10 MG 18:30: daily. Medical tablet 37 [place] estradiol Yes .5mg QD Take 0.[address] (ESTRACE) 8-08 mg by [facility] - 0.5 MG 18:30: mouth Medical tablet 37 daily. [place] zolpidem Yes 10mg Take [address] (AMBIEN) 10 8-08 by mouth [facility] - mg tablet 18:30: every Medical 37 night as Center needed for Insomnia. atorvastati Yes 40mg QD Take [address] [facility] (LIPITOR) 8-08 by mouth [facility] - 20 MG 18:30: daily . Medical tablet 37 [place] ranolazine Yes 500mg Q.5D Take [address] (RANEXA) 8-08 mg by [facility] - 500 MG 12 18:30: mouth 2 Medic al hr tablet 37 (two) Center times daily. cetirizine Yes 10mg QD Take [address] (ZYRTEC) 10 8-08 by mouth [facility] - MG chewable 18:30: daily. Medi kevin tablet 37 [place] estradiol Yes 2mg Place [address] (ESTRING) 2 8-08 vaginally [facility] - mg (7.5 mcg 18:30: every 3 Med ical /24 hour) 37 (three) Center vaginal months ring follow package directions . aspirin 81 Yes 81mg QD Take [address] MG chewable 8-08 by mouth [facility] - tablet 18:30: daily. Medical 37 Center citalopram 2018- Yes 60mg QD Take [address] (CELEXA) 40 8-08 by mouth [facility] - MG tablet 18:30: daily. Medica l 37 Center levothyroxi 2018-0 Yes 100ug Take [address] ne 8-08 mcg by [facility] - (SYNTHROID, 18:30: mouth Medic al LEVOTHROID) 37 Every Center 100 MCG morning on tablet an empty stomach. liothyronin 2018- Yes 5ug QD Take [address] [facility] (CYTOMEL) 8-08 by mouth [facility] - 5 MCG 18:30: daily. Medical tablet 37 Center Procedures This patient has no known procedures. Plan of Care Planned Activity Planned Date Details Comments Source Future Scheduled 2020-04-24 INFLUENZA VACCINE (#1) [facility] 00:[facility]00 [code = INFLUENZA Medical Ce nter VACCINE (#1)] Future Scheduled 2015-08-[address] [facility] - Test 00:00:00 WELLNESS (YEAR 2 or Medical Center FIRST YEAR if no IPPE) [code = MEDICARE ANNUAL WELLNESS (YEAR 2 or FIRST YEAR if no IPPE)] Future Scheduled 2009 PNEUMOCOCCAL 65+ [facility] - Test 00:00:00 (1 of 1 - Medical Center [id number] PCV13) [code = PNEUMOCOCCAL 65+ YRS (1 of 1 - [id number] PCV13)] Future Scheduled [address] [facility] - Test 00:00:00 [facility] (procedure) [code = 775057212] Encounters Start End Encounter Admission Attending Care Care Encounter Source Date/Time Date/Time Type Type Clinicians Facility Department ID 2019-06-09 2019-06-09 Office MAYA Pham [id number] 12:25:13 16:38:56 Visit [place] AMBULATOR [id number] Y [id number] 300 2019-04-26 2019-04-26 Office MAYA Pham [id number] 13:34:28 16:29:08 Visit [place] [place] AMBULATOR [id number] Y [id number] [id number] Results Test Description Test Time Test Comments Results Result [facility] chencho Comments - XR FLUORO FOR 2020-07-17 SPINE INJ 20:35:00 [facility] : 1945 Sex: F Patient Name: LIDIA STEVE Unit No: [id number] EXAMS: CPT CODE: [id number] XR FLUORO FOR SPINE INJ [id number] CERVICAL FACET DIAGNOSTIC INJECTION REFERRAL PHYSICIAN: None Preoperative diagnosis: Cervical spondylosis without myelopathy or radiculopathy Postoperative diagnosis: Cervical spondylosis without myelopathy or radiculopathy Procedure performed: Fluoroscopically guided needle localization of the left C2-3, left C3-4 and left C4-5 facets with arthrograms and diagnostic injection of local anesthetic and steroid. Findings:Marked capsular degeneration was seen at all levels with marked joint hypertrophy at the left C2-3 and C3-4 facets with moderate joint hypertrophy at the left C4-5 facet. Aspiration was negative. Provocation was partially concordant for usual pain at all levels. Anesthetic response was positive with the patient noting complete relief of her left neck pain. Preinjection VAS 3/10. Postinjection VAS 0/10. Steroid response pending follow-up. Estimated blood loss: Minimal Anesthesia: TIVA Complications: None Details of procedure: After obtaining stable vital signs, informed consent and IV access, with no contraindications to proceeding, the patient was taken to the operating room and placed in a prone position with all extremities padded and appropriate monitors placed. The patient was sterilely prepped and draped over the cervical spine. Using fluoroscopic visualization the insertion sites were marked for a posterior paravertebral approaches and using standard technique, a 26-gauge needle was inserted into each joint capsule without paresthesias. Aspiration was negative. Isovue-300 contrast 0.2 mL was injected to produce each arthrogram. There were no signs of intravascular or intrathecal uptake. Bupivacaine 0.75% 0.5 mL with lidocaine 4% 0.25 mL and triamcinolone 10 mg was then injected incrementally with frequent negative aspirations at each joint. There were no signs of intravascular or intrathecal uptake. The patient's vital signs remained stable. All needles were removed and the patient was taken to the PACU in good condition. Image: Image 1 at 2034 Reported and signed by: Alex Souza M.D. [facility] NAME: LIDIA STEVE [address] [facility] PHYS: Alex Chappell MD [place] [address] : 1945 AGE: 74 SEX: F LOC: JAMIE PHONE #: [phone] EXAM DATE: 07/17/2020 STATUS: [place] [facility] [place] #: [phone] RAD #: [id number] D/C DT PAGE 1 Signed Report (CONTINUED) Patient Name: LIDIA STEVE Unit No: [id number] EXAMS: CPT CODE: [id number] XR FLUORO FOR SPINE INJ [id number] <Continued> CC: Alex Souza MD Technologist: DIDIER SILVA RT(R) Transcribed D/ (2034) tMAXWELL.[facility] NAME: LIDIA STEVE [address] [facility] PHYS: Alex Chappell MD [place], [place] [address] : 1945 AGE: 74 SEX: F LOC: JAMIE PHONE #: [phone] EXAM DATE: 07/17/2020 STATUS: [place] [facility] [place] #: [phone] RAD #: [id number] D/C DT PAGE 2 Signed Report Patient Name: LIDIA STEVE Unit No: [id number] EXAMS: CPT CODE: [id number] XR FLUORO FOR SPINE INJ [id number] <Continued> Orig Print D/T: S: 07/17/2020 (2037) [facility] NAME: LIDIA STEVE [address] [facility] PHYS: Alex Chappell MD [place], [place] [address] : 1945 AGE: 74 SEX: F LOC: JAMIE PHONE #: [phone] EXAM DATE: 07/17/2020 STATUS: REG [facility] FAX #: [phone] RAD #: [id number] D/C DT PAGE 3 Signed Report TSH/FREE T4 IF INDICATED 2018-03-31 16:23:00 Test Item Value Reference Range Interpretation Comme nts THYROID STIMULATING HORMONE (BEAKER) (test code = 772) 0.41 uIU/mL 0.35-4.94 LIPID [id number] 05:32:00 Test Item Value Reference Range Interpretation Comments TRIGLYCERIDES (BEAKER) (test code = 91 mg/dL 540) CHOLESTEROL (BEAKER) (test code = 159 mg/dL 631) HDL CHOLESTEROL (BEAKER) (test code 46 mg/dL = 976) LDL CHOLESTEROL CALCULATED (BEAKER) 95 mg/dL (test code = 633) Triglyceride Reference Range: Low Risk <150 Borderline 150-199 High Risk 200-499 Very High Risk >=500Cholesterol Reference Range: Low Risk <200 Borderline 200-239 High Risk >240HDL Cholesterol Reference Range: Low Risk >=60 High Risk <40LDL Cholesterol Reference Range: Optimal <100 Near Optimal 100-129 Borderline 130-159 High 160-189 Very High >=190BASI METABOLIC [id number] 05:32:00 Test Item Value Reference Range Interpretation Comments SODIUM (BEAKER) 138 meq/L 136-145 (test code = 381) POTASSIUM (BEAKER) 3.8 meq/L 3.5-5.1 (test code = 379) CHLORIDE (BEAKER) 108 meq/L 98-107 H (test code = 382) CO2 (BEAKER) (test 21 meq/L 22-29 L code = 355) BLOOD UREA NITROGEN 15 mg/dL 7-21 (BEAKER) (test code = 354) CREATININE (BEAKER) 0.78 mg/dL 0.57-1.25 (test code = 358) GLUCOSE RANDOM 90 mg/dL 70-105 (BEAKER) (test code = 652) CALCIUM (BEAKER) 9.5 mg/dL 8.4-10.2 (test code = 697) EGFR (BEAKER) (test 72 mL/min/1.73 ESTIMA ANDREW GFR IS code = 1092) sq m NOT ACCURATE CREATININE CLEARANCE IN PREDICTING GLOMERULAR FILTRATION RATE . ESTIMATED GFR I S NOT APPLICABLE FOR DIALYSIS PATIEN TS. PROTHROMBIN TIME/[id number] 05:17:00 Test Item Value Reference Range Interpretation Comments PROTIME (BEAKER) (test code = 13.4 seconds 11.7-14.7 759) INR (BEAKER) (test code = 370) 1.0 <=5.9 RECOMMENDED COUMADIN/WARFARIN INR THERAPY RANGESSTANDARD DOSE: 2.0 - 3.0 Includes: PROPHYLAXIS forvenous thrombosis, systemic embolization; TREATMENT for venous thrombosis and/or pulmonary embolus.HIGH RISK: Target INR is 2.5-3.5 for patients with mechanical heart valves.CBC (HEMOGRAM ONLY)2018-03-31 05:06:00 Test Item Value Reference Range Interpretation Comments WHITE BLOOD CELL COUNT (BEAKER) 6.2 K/ L 3.5-10.5 (test code = 775) RED BLOOD CELL COUNT (BEAKER) 4.16 M/ L 3.93-5.22 (test code = 761) HEMOGLOBIN (BEAKER) (test code = 12.1 GM/DL 11.2-15.7 410) HEMATOCRIT (BEAKER) (test code = 38.3 % 34.1-44.9 411) MEAN CORPUSCULAR VOLUME (BEAKER) 92.1 fL 79.4-94.8 (test code = 753) MEAN CORPUSCULAR HEMOGLOBIN 29.1 pg 25.6-32.2 (BEAKER) (test code = 751) MEAN CORPUSCULAR HEMOGLOBIN CONC 31.6 GM/DL 32.2-35.5 L (BEAKER) (test code = 752) RED CELL DISTRIBUTION WIDTH 12.2 % 11.7-14.4 (BEAKER) (test code = 412) PLATELET COUNT (BEAKER) (test 188 K/CU MM 150-450 code = 756) MEAN PLATELET VOLUME (BEAKER) 11.8 fL 9.4-12.3 (test code = 754) NUCLEATED RED BLOOD CELLS 0 /100 WBC 0-0 (BEAKER) (test code = 413) TROPONIN [id number] 10:28:00 Test Item Value Reference Range Interpretation Comments TROPONIN I (BEAKER) (test code = 397) < ng/mL 0.00-0.03 Troponin I (TnI) levels [...] failure, acidosis, acute neurological disease, and persistent tachyarrhythmia.[id number] 10:12:00 Test Item Value Reference Range Interpretation Comments PARTIAL THROMBOPLASTIN TIME 95.5 seconds 22.5-36.0 H (BEAKER) (test code = 760) TROPONIN [id number] 04:28:00 Test Item Value Reference Range Interpretation Comments TROPONIN I (BEAKER) (test code = 397) < ng/mL 0.00-0.03 Troponin I (TnI) levels [...] acute neurological disease, and persistent tachyarrhythmia.BASIC METABOLIC [id number] 04:21:00 Test Item Value Reference Range Interpretation Comments SODIUM (BEAKER) 141 meq/L 136-145 (test code = 381) POTASSIUM (BEAKER) 4.3 meq/L 3.5-5.1 (test code = 379) CHLORIDE (BEAKER) 110 meq/L 98-107 H (test code = 382) CO2 (BEAKER) (test 26 meq/L 22-29 code = 355) BLOOD UREA NITROGEN 16 mg/dL 7-21 (BEAKER) (test code = 354) CREATININE (BEAKER) 0.93 mg/dL 0.57-1.25 (test code = 358) GLUCOSE RANDOM 94 mg/dL 70-105 (BEAKER) (test code = 652) CALCIUM (BEAKER) 9.1 mg/dL 8.4-10.2 (test code = 697) EGFR (BEAKER) (test 59 mL/min/1.73 ESTIMA ANDREW GFR IS code = 1092) sq m NOT ACCURATE CREATININE CLEARANCE IN PREDICTING GLOMERULAR FILTRATION RATE . ESTIMATED GFR I S NOT APPLICABLE FOR DIALYSIS PATISTEFANIE IBARRA [id number] 03:38:00 Test Item Value Reference Range Interpretation Comments PARTIAL THROMBOPLASTIN TIME 25.4 seconds 22.5-36.0 (BEAKER) (test code = 760) Prior to initiating heparinCBC (HEMOGRAM ONLY)2018-03-30 03:31:00 Test Item Value Reference Range Interpretation Comments WHITE BLOOD CELL COUNT (BEAKER) 6.2 K/ L 3.5-10.5 (test code = 775) RED BLOOD CELL COUNT (BEAKER) 4.05 M/ L 3.93-5.22 (test code = 761) HEMOGLOBIN (BEAKER) (test code = 12.1 GM/DL 11.2-15.7 410) HEMATOCRIT (BEAKER) (test code = 37.8 % 34.1-44.9 411) MEAN CORPUSCULAR VOLUME (BEAKER) 93.3 fL 79.4-94.8 (test code = 753) MEAN CORPUSCULAR HEMOGLOBIN 29.9 pg 25.6-32.2 (BEAKER) (test code = 751) MEAN CORPUSCULAR HEMOGLOBIN CONC 32.0 GM/DL 32.2-35.5 L (BEAKER) (test code = 752) RED CELL DISTRIBUTION WIDTH 12.3 % 11.7-14.4 (BEAKER) (test code = 412) PLATELET COUNT (BEAKER) (test 182 K/CU MM 150-450 code = 756) MEAN PLATELET VOLUME (BEAKER) 12.1 fL 9.4-12.3 (test code = 754) NUCLEATED RED BLOOD CELLS 0 /100 WBC 0-0 (BEAKER) (test code = 413) B-TYPE NATRIURETIC FACTOR (BNP)2018-03-29 22:31:00 Test Item Value Reference Range Interpretation Comments B-TYPE NATRIURETIC PEPTIDE (BEAKER) 62 pg/mL 0-100 (test code = 700) CREATINE KINASE (CK), TOTAL AND [id number] 19:40:00 Test Item Value Reference Range Interpretation Comments CREATINE KINASE TOTAL (BEAKER) 55 U/L 29-200 (test code = 380) CREATINE KINASE-MB (BEAKER) (test 1.1 ng/mL 0.0-6.6 code = 750) CREATINE KINASE-MB INDEX (BEAKER) 2.0 % (test code = 395) CK-MB Reference Range:<6.7 Normal6.7-10.0 Borderline>10.0 AbnormalTROPONIN [id number] 19:40:00 Test Item Value Reference Range Interpretation Comments TROPONIN I (BEAKER) (test code = 397) < ng/mL 0.00-0.03 Troponin I (TnI) levels [...] persistent tachyarrhythmia.RAD, CHEST, PA OR AP, 1 [id number] 19:39:00Reason for exam:->CHEST PAINShould this be performed at the bedside?->NoFINAL REPORT HISTORY : CHEST PAIN. Comparison: None Comment: Single portable view of the chest was obtained. The cardiac silhouette size is within normal limits. No pneumothoraxor pleural effusion is seen. There is some left basilar airspace disease/consolidation that may represent atelectasis. Pneumonitis or aspiration cannot be excluded. Signed: Tremayne Armenta MDReport Verified Date/Time: 03/29/2018 19:39:19 Reading Location: [address] Consult Reading Room URINALYSIS W/ [id number] 19:37:00 Test Item Value Reference Range Interpretation Comments COLOR (BEAKER) (test code Light Yellow = 470) CLARITY (BEAKER) (test Clear code = 469) SPECIFIC GRAVITY UA 1.004 1.001-1.035 (BEAKER) (test code = 468) PH UA (BEAKER) (test code 6.0 5.0-8.0 = 467) PROTEIN UA (BEAKER) (test Negative Negative code = 464) GLUCOSE UA (BEAKER) (test Negative Negative code = 365) KETONES UA (BEAKER) (test Negative Negative code = 371) BILIRUBIN UA (BEAKER) Negative Negative (test code = 462) BLOOD UA (BEAKER) (test Negative Negative code = 461) NITRITE UA (BEAKER) (test Negative Negative code = 465) LEUKOCYTE ESTERASE UA Negative Negative (BEAKER) (test code = 466) UROBILINOGEN UA (BEAKER) 0.2 mg/dL 0.2-1.0 (test code = 463) RBC UA (BEAKER) (test code < /HPF = 519) WBC UA (BEAKER) (test code < /HPF = 520) SQUAMOUS EPITHELIAL < /HPF (BEAKER) (test code = 516) SOURCE(BEAKER) (test code Urine, Clean Catch = 3875) [id number] 19:33:00 Test Item Value Reference Range Interpretation Comments MAGNESIUM (BEAKER) (test code = 2.2 mg/dL 1.6-2.6 627) BASIC METABOLIC [id number] 19:33:00 Test Item Value Reference Range Interpretation Comments SODIUM (BEAKER) 141 meq/L 136-145 (test code = 381) POTASSIUM (BEAKER) 3.2 meq/L 3.5-5.1 L (test code = 379) CHLORIDE (BEAKER) 109 meq/L 98-107 H (test code = 382) CO2 (BEAKER) (test 26 meq/L 22-29 code = 355) BLOOD UREA NITROGEN 17 mg/dL 7-21 (BEAKER) (test code = 354) CREATININE (BEAKER) 1.38 mg/dL 0.57-1.25 H (test code = 358) GLUCOSE RANDOM 84 mg/dL 70-105 (BEAKER) (test code = 652) CALCIUM (BEAKER) 9.5 mg/dL 8.4-10.2 (test code = 697) EGFR (BEAKER) (test 37 mL/min/1.73 ESTIMA ANDREW GFR IS code = 1092) sq m NOT ACCURATE CREATININE CLEARANCE IN PREDICTING GLOMERULAR FILTRATION RATE . ESTIMATED GFR I S NOT APPLICABLE FOR DIALYSIS PATIEN TS. HEPATIC FUNCTION [id number] 19:33:00 Test Item Value Reference Range Interpretation Comments TOTAL PROTEIN (BEAKER) (test code = 6.3 gm/dL 6.0-8.3 770) ALBUMIN (BEAKER) (test code = 1145) 3.8 g/dL 3.5-5.0 BILIRUBIN TOTAL (BEAKER) (test code 0.3 mg/dL 0.2-1.2 = 377) BILIRUBIN DIRECT (BEAKER) (test 0.1 mg/dL 0.1-0.5 code = 706) ALKALINE PHOSPHATASE (BEAKER) (test 101 U/L 40-150 code = 346) AST (SGOT) (BEAKER) (test code = 20 U/L 5-34 353) ALT (SGPT) (BEAKER) (test code = 23 U/L 6-55 347) [id number] 19:33:00 Test Item Value Reference Range Interpretation Comments LIPASE (BEAKER) (test code = 749) 24 U/L 8-78 CBC W/PLT COUNT & AUTO [id number] 19:17:00 Test Item Value Reference Range Interpretation Comments WHITE BLOOD CELL COUNT (BEAKER) 6.4 K/ L 3.5-10.5 (test code = 775) RED BLOOD CELL COUNT (BEAKER) 3.87 M/ L 3.93-5.22 L (test code = 761) HEMOGLOBIN (BEAKER) (test code = 11.6 GM/DL 11.2-15.7 410) HEMATOCRIT (BEAKER) (test code = 36.5 % 34.1-44.9 411) MEAN CORPUSCULAR VOLUME (BEAKER) 94.3 fL 79.4-94.8 (test code = 753) MEAN CORPUSCULAR HEMOGLOBIN 30.0 pg 25.6-32.2 (BEAKER) (test code = 751) MEAN CORPUSCULAR HEMOGLOBIN CONC 31.8 GM/DL 32.2-35.5 L (BEAKER) (test code = 752) RED CELL DISTRIBUTION WIDTH 12.1 % 11.7-14.4 (BEAKER) (test code = 412) PLATELET COUNT (BEAKER) (test 175 K/CU MM 150-450 code = 756) MEAN PLATELET VOLUME (BEAKER) 11.9 fL 9.4-12.3 (test code = 754) NUCLEATED RED BLOOD CELLS 0 /100 WBC 0-0 (BEAKER) (test code = 413) NEUTROPHILS RELATIVE PERCENT 70 % (BEAKER) (test code = 429) LYMPHOCYTES RELATIVE PERCENT 17 % (BEAKER) (test code = 430) MONOCYTES RELATIVE PERCENT 12 % (BEAKER) (test code = 431) EOSINOPHILS RELATIVE PERCENT 1 % (BEAKER) (test code = 432) BASOPHILS RELATIVE PERCENT 0 % (BEAKER) (test code = 437) NEUTROPHILS ABSOLUTE COUNT 4.51 K/ L 1.56-6.13 (BEAKER) (test code = 670) LYMPHOCYTES ABSOLUTE COUNT 1.09 K/ L 1.18-3.74 L (BEAKER) (test code = 414) MONOCYTES ABSOLUTE COUNT (BEAKER) 0.74 K/ L 0.24-0.36 H (test code = 415) EOSINOPHILS ABSOLUTE COUNT 0.04 K/ L 0.04-0.36 (BEAKER) (test code = 416) BASOPHILS ABSOLUTE COUNT (BEAKER) 0.02 K/ L 0.01-0.08 (test code = 417) IMMATURE GRANULOCYTES-RELATIVE 0 % 0-1 PERCENT (BEAKER) (test code = 1914)
--- NOTE | 2020-09-12 12:49 | ER ---
Nurse's Notes [facility] Name: Dang Kemp Age: 75 yrs Sex: Female : 1945 Arrival Date: 09/12/2020 Time: 12:37 Bed Waiting Private MD: Anuel Prasad Diagnosis: ED Course: 09/12 12:37 Patient arrived in ED. mr 12:37 Anuel Prasad MD is Private Physician. mr Administered Medications: No medications were administered Outcome: 12:49 Patient left the ED. ll1 Signatures: Palak Lux Lynsay, RN RN ll1
== END 2020-09-12 12:49 | disposition left against medical advice (07) ==
LOC: ER 12:34
DX: Z53.21 Procedure and treatment not carried out due to patient leaving prior to being seen by health care provider (principal)

== ENCOUNTER 2020-11-25 13:46 | Emergency (ER) | payer OTHER ==
--- OUTSIDE RECORDS SUMMARY | 2020-11-25 13:49 | XMS REPORT | Continuity of Care Document ---
:[address] [facility] t Address [address] [place] [address] Care Team Providers Name Role Phone System, [...] Treatment Clinician Date CAD CAD Disease Active [facility] St (coronary (coronary 03-31 [facility] artery artery 00:00: Medical disease) disease) 00 Center Chest pain Chest pain Disease Active [facility] Abnormal Abnormal Disease [facility] ultn 00:00: Medical function function 00 Center study study Allergies, Adverse Reactions, Alerts Allergy Allergy Status Severity Reaction(s) Onset Inactive Treating Comm ents Source Name Type Date Date Clinician adhesive DA Active U 2019-08 [facility] tape 09-16 [place] [facility] No Known DA Active [facility] Allergie 09-11 [place] [facility] 00:[facility] Social History Social Habit Start Date Stop Date Quantity Comments Source Sex Assigned At [facility] Tobacco use and 2018-04-01 2018-04-01 Never used [...] 20 MG 18:30: daily. Medical capsule 37 [facility] amLODIPine Yes 10mg QD Take [address] (NORVASC) 8-08 by mouth [facility] - 10 MG 18:30: daily. Medical tablet 37 [place] estradiol Yes .5mg QD Take 0.[address] [facility] [address] (ESTRACE) 8-08 mg by [facility] - 0.5 MG 18:30: mouth Medical tablet 37 daily. [facility] zolpidem Yes 10mg Take [address] [address] (AMBIEN) 10 8-08 by mouth [facility] - mg tablet 18:30: every Medical 37 night as Center needed for Insomnia. atorvastati Yes 40mg QD Take [address] [facility] (LIPITOR) 8-08 by mouth [facility] - 20 MG 18:30: daily . Medical tablet 37 [facility] ranolazine Yes 500mg Q.5D Take [address] (RANEXA) 8-08 mg by [facility] - 500 MG 12 18:30: mouth 2 Medic al hr tablet 37 (two) Center times daily. cetirizine Yes 10mg QD Take [address] (ZYRTEC) 10 8-08 by mouth [facility] - MG chewable 18:30: daily. Medi kevin tablet 37 [place] estradiol Yes 2mg Place 2 mg CH [...] 00:00:00 (1 of 1 - Medical Center CRIJ43_Oigpuba PCV13) [code = PNEUMOCOCCAL 65+ YRS (1 of 1 - SVKE57_Qradzvk PCV13)] Future Scheduled [address] [facility] - Test 00:00:00 [facility] colon (procedure) [code = 214194435] Encounters Start End Encounter Admission Attending Care Care Encounter Source Date/Time Date/Time Type Type Clinicians Facility Department ID 2019-06-09 2019-06-09 Office MAYA Pham [id number] 12:25:13 16:38:56 Visit [place] AMBULATOR [id number] Y [id number] 2019-04-26 2019-04-26 Office MAYA Pham [id number] 13:34:28 16:29:08 Visit [place] AMBULATOR 350.1.13.21 Y [id number] Results Test Description Test Time Test Comments Results Result [facility] chencho Comments - XR FLUORO FOR 2020-07-17 SPINE INJ 20:35:00 [facility] : 1945 Sex: F Patient Name: LIDIA STEVE Unit No: [id number] EXAMS: CPT CODE: [id number] XR FLUORO FOR SPINE INJ 18065 CERVICAL FACET DIAGNOSTIC INJECTION REFERRAL PHYSICIAN: None [...] Reported and signed by: Alex Souza M.D. [place] [facility] [place] NAME: LIDIA STEVE [address] [facility] PHYS: Alex Chappell MD [place] [address] : 1945 AGE: 74 SEX: F LOC: JAMIE PHONE #: [phone] EXAM DATE: 07/17/2020 STATUS: REG [facility] FAX #: [phone] RAD #: [id number] D/C DT PAGE 1 Signed Report (CONTINUED) Patient Name: LIDIA STEVE Unit No: [id number] EXAMS: CPT CODE: [id number] XR FLUORO FOR SPINE INJ 12242 <Continued> CC: Alex Souza MD Technologist: DIDIER SILVA RT(R) Transcribed D/ (2034) tMAXWELL.[facility] [place] NAME: LIDIA STEVE [address] [facility] PHYS: Alex Chappell MD [place], [place] [address] : 1945 AGE: 74 SEX: F LOC: JAMIE PHONE #: [phone] EXAM DATE: 07/17/2020 STATUS: REG [facility] FAX #: [phone] RAD #: [id number] D/C DT PAGE 2 Signed Report Patient Name: LIDIA STEVE Unit No: [id number] EXAMS: CPT CODE: [id number] XR FLUORO FOR SPINE INJ 89553 <Continued> Orig Print D/T: S: 07/17/2020 (2037) [place] [facility] [place] NAME: LIDIA STEVE [address] [facility] PHYS: Alex Chappell MD [place], [place] [address] : 1945 AGE: 74 SEX: F LOC: JAMIE PHONE #: [phone] EXAM DATE: 07/17/2020 STATUS: REG [facility] FAX #: [phone] RAD #: [id number] D/C DT PAGE 3 Signed Report TSH/FREE T4 IF INDICATED 2018-03-31 16:23:00 Test Item Value Reference Range Interpretation Comme nts THYROID STIMULATING HORMONE (BEAKER) (test code = 772) 0.41 uIU/mL 0.35-4.94 LIPID [id number] 05:32:00 Test Item Value Reference Range Interpretation [...] 130-159 High 160-189 Very High >=190BASI METABOLIC [id number] 05:32:00 Test Item Value Reference Range Interpretation [...] NOT APPLICABLE FOR DIALYSIS PATIEN TS. PROTHROMBIN TIME/[id number] 05:17:00 Test Item Value Reference Range Interpretation [...] 0-0 (BEAKER) (test code = 413) TROPONIN [id number] 10:28:00 Test Item Value Reference Range Interpretation [...] failure, acidosis, acute neurological disease, and persistent tachyarrhythmia.[id number] 10:12:00 Test Item Value Reference Range Interpretation Comments PARTIAL THROMBOPLASTIN TIME 95.5 seconds 22.5-36.0 H (BEAKER) (test code = 760) TROPONIN [id number] 04:28:00 Test Item Value Reference Range Interpretation [...] acute neurological disease, and persistent tachyarrhythmia.BASIC METABOLIC [id number] 04:21:00 Test Item Value Reference Range Interpretation [...] S NOT APPLICABLE FOR DIALYSIS PATISTEFANIE IBARRA [id number] 03:38:00 Test Item Value Reference Range Interpretation [...] = 700) CREATINE KINASE (CK), TOTAL AND [id number] 19:40:00 Test Item Value Reference Range Interpretation Comments CREATINE KINASE TOTAL (BEAKER) 55 U/L 29-200 (test code = 380) CREATINE KINASE-MB (BEAKER) (test 1.1 ng/mL 0.0-6.6 code = 750) CREATINE KINASE-MB INDEX (BEAKER) 2.0 % (test code = 395) CK-MB Reference Range:<6.7 Normal6.7-10.0 Borderline>10.0 AbnormalTROPONIN [id number] 19:40:00 Test Item Value Reference Range Interpretation [...] persistent tachyarrhythmia.RAD, CHEST, PA OR AP, 1 [id number] 19:39:00Reason for exam:->CHEST PAINShould this be performed [...] MDReport Verified Date/Time: 03/29/2018 19:39:19 Reading Location: [address] Consult Reading Room URINALYSIS W/ [id number] 19:37:00 Test Item Value Reference Range Interpretation [...] SOURCE(BEAKER) (test code Urine, Clean Catch = 9025) [id number] 19:33:00 Test Item Value Reference Range Interpretation Comments MAGNESIUM (BEAKER) (test code = 2.2 mg/dL 1.6-2.6 627) BASIC METABOLIC [id number] 19:33:00 Test Item Value Reference Range Interpretation [...] APPLICABLE FOR DIALYSIS PATIEN TS. HEPATIC FUNCTION [id number] 19:33:00 Test Item Value Reference Range Interpretation [...] (test code = 23 U/L 6-55 347) [id number] 19:33:00 Test Item Value Reference Range Interpretation Comments LIPASE (BEAKER) (test code = 749) 24 U/L 8-78 CBC W/PLT COUNT & AUTO [id number] 19:17:00 Test Item Value Reference Range Interpretation [...] % 0-1 PERCENT (BEAKER) (test code = 7931)
[2020-11-25] MEDS ORDERED: METHYLPREDNISOLONE 125 MG INJ ONE (16:29)
[2020-11-25] MEDS ORDERED: HYDROCODONE/APAP 7.5/325 MG TAB ONE (16:30)
--- NOTE | 2020-11-25 17:31 | RAD REPORT ---
EXAM DESCRIPTION: CT - CTHCSPWOC - 11/25/2020 4:40 pm CLINICAL HISTORY: Trauma, head and neck injury. PAIN COMPARISON: <Comparisons> TECHNIQUE: Axial 5 mm thick images of the head were obtained. Axial 2 mm thick images of the cervical spine were obtained with sagittal and coronal reconstruction images generated and reviewed. All CT scans are performed using dose optimization technique as appropriate and may include automated exposure control or mA/KV adjustment according to patient size. FINDINGS: CT HEAD WITHOUT CONTRAST: No acute hemorrhage, hydrocephalus or extra-axial collection is identified.No areas of brain edema or midline shift. The paranasal sinuses and mastoids are clear.The calvarium is intact. CT CERVICAL SPINE WITHOUT CONTRAST: No fracture or subluxation.Mild lower cervical degenerative changes are present.No prevertebral soft tissues swelling is identified. 12 mm opacity is present in the right apex posteriorly, incompletely assessed. Nonemergent CT chest follow-up could be obtained for followup assessment. IMPRESSION: No acute intracranial or cervical spine findings. Mild lower cervical degenerative changes.
--- NOTE | 2020-11-25 17:39 | EDPHYS ---
Physician Documentation [facility] Name: Dang Kemp Age: 75 yrs Sex: Female : 1945 Arrival Date: 11/25/2020 Time: 13:49 Bed 15 Private MD: ED Physician Rosa Kemp HPI: 11/25 16:13 This 75 yrs old Female presents to ER via Ambulatory with complaints of Neck ma2 Pain, >24Hrs Old. 16:13 Onset: The symptoms/episode began/occurred suddenly, 1 day(s) ago. Onset: The ma2 symptoms/episode began/occurred suddenly, 1 day(s) ago. Associated signs and symptoms: Pertinent negatives: headache, nausea, tingling, vomiting. Severity of symptoms: At their worst the symptoms were mild, in the emergency department the symptoms are unchanged. The patient has not experienced similar symptoms in the past. Historical: - Allergies: 14:16 No Known Allergies; aa5 - PMHx: 14:16 Angina; heart disease; Thyroid problem; Neck pain; aa5 14:16 Hypertension; aa5 14:17 GERD; aa5 - Immunization history:: Adult Immunizations unknown. - Social history:: Smoking status: Patient denies any tobacco usage or history of. Patient/guardian denies using alcohol, street drugs, The patient lives with family. - Family history:: not pertinent. ROS: 16:13 Constitutional: Negative for fever, chills, and weight loss. ma2 16:13 All other systems are negative. Exam: 16:13 Constitutional: This is a well developed, well nourished patient who is awake, alert, ma2 and in no acute distress. Head/Face: Normocephalic, atraumatic. Eyes: Pupils equal round and reactive to light, extra-ocular motions intact. Lids and lashes normal. Conjunctiva and sclera are non-icteric and not injected. Cornea within normal limits. Periorbital areas with no swelling, redness, or edema. ENT: Nares patent. No nasal discharge, no septal abnormalities noted. Tympanic membranes are normal and external auditory canals are clear. Oropharynx with no redness, swelling, or masses, exudates, or evidence of obstruction, uvula midline. Mucous membranes moist. Neck: neck pain, left sided ttp, Trachea midline, no thyromegaly or masses palpated, and no cervical lymphadenopathy. Supple, full range of motion without nuchal rigidity, or vertebral point tenderness. No Meningismus. Chest/axilla: Normal chest wall appearance and motion. Nontender with no deformity. No lesions are appreciated. Cardiovascular: Regular rate and rhythm with a normal S1 and S2. No gallops, murmurs, or rubs. Normal PMI, no JVD. No pulse deficits. Respiratory: Lungs have equal breath sounds bilaterally, clear to auscultation and percussion. No rales, rhonchi or wheezes noted. No increased work of breathing, no retractions or nasal flaring. Abdomen/GI: Soft, non-tender, with normal bowel sounds. No distension or tympany. No guarding or rebound. No evidence of tenderness throughout. Back: No spinal tenderness. No costovertebral tenderness. Full range of motion. Skin: Warm, dry with normal turgor. Normal color with no rashes, no lesions, and no evidence of cellulitis. MS/ Extremity: Pulses equal, no cyanosis. Neurovascular intact. Full, normal range of motion. Neuro: Awake and alert, GCS 15, oriented to person, place, time, and situation. Cranial nerves II-XII grossly intact. Motor strength 5/5 in all extremities. Sensory grossly intact. Cerebellar exam normal. Normal gait. Vital Signs: 14:14 BP 138 / 69; Pulse 87; Resp 18 S; Temp 98.7(TE); Pulse Ox 98% on R/A; Weight 72.57 kg aa5 (R); Height 5 ft. 4 in. (162.56 cm) (R); Pain 7/10; 16:45 BP 160 / 85; Pulse 91; Resp 16 S; Pulse Ox 99% on R/A; ca1 18:29 BP 144 / 95; Pulse 86; Resp 16 S; Pulse Ox 100% on R/A; ca1 14:14 Body Mass Index 27.46 (72.57 kg, 162.56 cm) aa5 MDM: 15:36 Patient medically screened. ma2 17:38 Differential diagnosis: arthritis, cervical strain, Spondylosis subluxation. Data ma2 reviewed: vital signs, nurses notes. Counseling: I had a detailed discussion with the patient and/or guardian regarding: the historical points, exam findings, and any diagnostic results supporting the discharge/admit diagnosis, the presence of at least one elevated blood pressure reading (>120/80) during this emergency department visit, the need for outpatient follow up. Response to treatment: the patient's symptoms have markedly improved after treatment. 11/25 16:06 Order name: CT Head C Spine; Complete Time: 17:38 ma2 Administered Medications: 16:20 Drug: SOLU-Medrol 125 mg Route: IM; Site: left gluteus; ca1 18:02 Follow up: Response: No adverse reaction ca1 16:22 Drug: [place] (HYDROcodone-acetaminophen) (7.5 mg-325 mg) 1 tabs {Note: rass 0.} Route: ca1 PO; 18:02 Follow up: Response: No adverse reaction; Pain is unchanged, physician notified; RASS: ca1 Alert and Calm (0) 18:02 Drug: Ondansetron (Zofran) 4 mg Route: PO; ca1 18:29 Follow up: Response: No adverse reaction; Nausea is decreased ca1 18:09 Drug: morphine 4 mg {Note: rass 0.} Route: IM; Site: right gluteus; ca1 18:29 Follow up: Response: No adverse reaction; Pain is decreased; RASS: Alert and Calm (0) ca1 Disposition: 11/25/20 17:39 Discharged to Home. Impression: Pain in thoracic spine - and thoracis spine. - Condition is Stable. - Discharge Instructions: Cervical Sprain, [id number]. - Prescriptions for Diclofenac Sodium 75 mg Oral Tablet Sustained Release - take 1 tablet by ORAL route 2 times per day; 30 tablet. Medrol (Cory) 4 mg Oral Tablets, Dose Pack - take 1 tablet by ORAL route as directed - follow package instructions; 1 packet. - Medication Reconciliation Form, Thank You Letter, Antibiotic Education, Prescription Opioid Use form. - Follow up: Private Physician; When: 24 Hours; Reason: If symptoms return. Signatures: Dispatcher [employer] EDMaylin Tomlinson RN RN aa5 Rosa Kemp MD MD ma2 Pam Brito RN RN ca1 Corrections: (The following items were deleted from the chart) 18:37 17:39 11/25/2020 17:39 Discharged to Home. Impression: Pain in thoracic spine - and ca1 thoracis spine. Condition is Stable. Prescriptions for Diclofenac Sodium 75 mg Oral Tablet Sustained Release - take 1 tablet by ORAL route 2 times per day; 30 tablet, Medrol (Cory) 4 mg Oral Tablets, Dose Pack - take 1 tablet by ORAL route as directed - follow package instructions; 1 packet. and Forms are Medication Reconciliation Form, Thank You Letter, Antibiotic Education, Prescription Opioid Use. Follow up: Private Physician; When: 24 Hours; Reason: If symptoms return. ma2
--- NOTE | 2020-11-25 17:39 | ER ---
Nurse's Notes [facility] Name: Dang Kemp Age: 75 yrs Sex: Female : 1945 Arrival Date: 11/25/2020 Time: 13:49 Bed 15 Private MD: Diagnosis: Pain in thoracic spine-and thoracis spine Presentation: 11/25 14:14 Chief complaint: Patient states: "I went to an orthopedic and they found disc problems aa5 with my neck back in June and I lost my primary doctor and I can't get into my orthopedic doctor and I am hurting". Pt c/o pain to left side of neck. Coronavirus screen: At this time, the client does not indicate any symptoms associated with coronavirus-19. Ebola Screen: Patient negative for fever greater than or equal to 101.5 degrees Fahrenheit, and additional compatible Ebola Virus Disease symptoms. Initial Sepsis Screen: Does the patient meet any 2 criteria? No. Patient's initial sepsis screen is negative. Does the patient have a suspected source of infection? No. Patient's initial sepsis screen is negative. Risk Assessment: Do you want to hurt yourself or someone else? Patient reports no desire to harm self or others. 14:14 Method Of Arrival: Ambulatory aa5 14:14 Acuity: CATARINO 3 aa5 14:14 Onset of symptoms was 2019. aa5 Historical: - Allergies: 14:16 No Known Allergies; aa5 - PMHx: 14:16 Angina; heart disease; Thyroid problem; Neck pain; aa5 14:16 Hypertension; aa5 14:17 GERD; aa5 - Immunization history:: Adult Immunizations unknown. - Social history:: Smoking status: Patient denies any tobacco usage or history of. Patient/guardian denies using alcohol, street drugs, The patient lives with family. - Family history:: not pertinent. Screenin:40 Abuse screen: Denies threats or abuse. Denies injuries from another. Nutritional ca1 screening: No deficits noted. Tuberculosis screening: No symptoms or risk factors identified. Fall Risk None identified. Assessment: 15:40 General: Appears in no apparent distress. comfortable, Behavior is calm, cooperative, ca1 appropriate for age. Pain: Complains of pain in occipital area, base of the skull and neck Pain currently is 7 out of 10 on a pain scale. Pain began a week ago. Neuro: Level of Consciousness is awake, alert, obeys commands, Oriented to person, place, time, situation. Cardiovascular: Heart tones S1 S2 present Capillary refill < 3 seconds Patient's skin is warm and dry. Respiratory: Airway is patent Respiratory effort is even, unlabored, Respiratory pattern is regular, symmetrical, Breath sounds are clear bilaterally. GI: Abdomen is round non-distended, Bowel sounds present X 4 quads. Abd is soft and non tender X 4 quads. : No signs and/or symptoms were reported regarding the genitourinary system. EENT: No signs and/or symptoms were reported regarding the EENT system. Derm: Skin is intact, is healthy with good turgor, Skin is pink, warm \\T\\ dry. Musculoskeletal: Circulation, motion, and sensation intact. Capillary refill < 3 seconds. 16:45 Reassessment: Patient appears in no apparent distress at this time. Patient and/or ca1 family updated on plan of care and expected duration. Pain level reassessed. Patient is alert, oriented x 3, equal unlabored respirations, skin warm/dry/pink. 18:29 Reassessment: Patient appears in no apparent distress at this time. Patient and/or ca1 family updated on plan of care and expected duration. Pain level reassessed. Patient is alert, oriented x 3, equal unlabored respirations, skin warm/dry/pink. 20:12 Reassessment: pt called up to ED to notify she was unable to take NSAIDs due to her em stomach problems, Dr. Kemp has left for the day, Dr. Davis notified and spoke with the pt and agreed to have pain medication called in to the [facility] in , (10) 50 mg Tramadol q 8 hrs, PO, no refills. Vital Signs: 14:14 BP 138 / 69; Pulse 87; Resp 18 S; Temp 98.7(TE); Pulse Ox 98% on R/A; Weight 72.57 kg aa5 (R); Height 5 ft. 4 in. (162.56 cm) (R); Pain 7/10; 16:45 BP 160 / 85; Pulse 91; Resp 16 S; Pulse Ox 99% on R/A; ca1 18:29 BP 144 / 95; Pulse 86; Resp 16 S; Pulse Ox 100% on R/A; ca1 14:14 Body Mass Index 27.46 (72.57 kg, 162.56 cm) aa5 ED Course: 13:49 Patient arrived in ED. as 14:13 Arm band placed on. aa5 14:15 Triage completed. aa5 15:36 Rosa Kemp MD is Attending Physician. ma2 15:40 Patient has correct armband on for positive identification. Bed in low position. Call ca1 light in reach. Side rails up X2. Pulse ox on. NIBP on. Door closed. Noise minimized. Lights dimmed. Warm blanket given. Head of bed. 15:43 Pam Brito, OLGA is Primary Nurse. ca1 16:40 CT Head C Spine In Process Unspecified. EDMS 18:30 No provider procedures requiring assistance completed. Patient did not have IV access ca1 during this emergency room visit. Administered Medications: 16:20 Drug: SOLU-Medrol 125 mg Route: IM; Site: left gluteus; ca1 18:02 Follow up: Response: No adverse reaction ca1 16:22 Drug: [place] (HYDROcodone-acetaminophen) (7.5 mg-325 mg) 1 tabs {Note: rass 0.} Route: ca1 PO; 18:02 Follow up: Response: No adverse reaction; Pain is unchanged, physician notified; RASS: ca1 Alert and Calm (0) 18:02 Drug: Ondansetron (Zofran) 4 mg Route: PO; ca1 18:29 Follow up: Response: No adverse reaction; Nausea is decreased ca1 18:09 Drug: morphine 4 mg {Note: rass 0.} Route: IM; Site: right gluteus; ca1 18:29 Follow up: Response: No adverse reaction; Pain is decreased; RASS: Alert and Calm (0) ca1 Outcome: 17:39 Discharge ordered by . ma 18:30 Discharged to home ambulatory, with family. ca1 18:30 Condition: stable 18:30 Discharge instructions given to patient, Instructed on discharge instructions, follow up and referral plans. medication usage, Demonstrated understanding of instructions, follow-up care, medications, Prescriptions given X 2. 18:37 Patient left the ED. ca1 Signatures: Dispatcher [employer] EDMS Anthony Paniagua RN RN em Martinez, Amelia as Calderon, Audri, RN RN aa Alzahri, Mohammad, MD MD ma2 Acob, Pam, RN RN ca1
[2020-11-25] MEDS ORDERED: MORPHINE 4 MG/ML SYR ONE (18:21)
[2020-11-25] MEDS ORDERED: ONDANSETRON 4 MG (ODT) TAB ONE (18:22)
[2020-11-25 18:44] VITALS: BP 144/95; O2SAT 100
[2020-11-25 18:56] VITALS: TEMP 97.7
== END 2020-11-25 18:37 | disposition home or self-care (01) ==
LOC: ER 13:46
DX: M54.6 Pain in thoracic spine (principal); I10 Essential (primary) hypertension; I51.9 Heart disease, unspecified
CPT/HCPCS: 70450; 72125; J2930; 96372; 99284